=== PATIENT | female | born 1970 | race Caucasian/White ===

== ENCOUNTER 2020-08-14 14:17 | Outpatient (REF) | payer OTHER, SELFPAY ==
--- NOTE | 2020-08-14 14:24 | MM_ITS ---
EXAMINATION: MM SCREENING DIGITAL BREAST TOMOSYNTHESIS, BILATERAL CLINICAL INFORMATION: Screening. Asymptomatic. The lifetime risk of breast cancer based on the Tyrer-Cuzick Model is 5%. COMPARISON: Mammography: 08/09/2019, 04/19/2018, 03/02/2017 TECHNIQUE: Digital breast tomosynthesis is performed in both the craniocaudal and mediolateral oblique views along with computer-aided detection (CAD). Synthesized 2D images are generated from the tomosynthesis. Additional bilateral MLO views are provided. FINDINGS: There are scattered areas of fibroglandular density (ACR BI-RADS breast composition Category b). There are no significant masses, abnormal calcifications, or other abnormalities. There are similar appearing punctate calcifications in the bilateral upper outer quadrants. Left-sided pacemaker generator overlies and partly obscures the axilla on MLO view. MM/MM tomosynthesis screening BI IMPRESSION: No significant changes from prior studies. ASSESSMENT: BI-RADS 2: Benign RECOMMENDATION: Routine annual mammography screening. This patient's information was entered into a reminder system with a target due date for their next mammogram.
== END 2020-08-14 14:18 | disposition home or self-care (01) ==
LOC: HO.MAMMO 14:17
PROVIDERS: PCP Internal Medicine; Visit Provider Internal Medicine
DX: Z12.31 Encounter for screening mammogram for malignant neoplasm of breast (principal)
CPT/HCPCS: 77063; 77067

== ENCOUNTER 2020-10-28 16:23 | Outpatient (REF) | payer OTHER, SELFPAY | END 2020-10-28 16:24 | disposition home or self-care (01) | LOC: HO.LAB 16:23 | PROVIDERS: Visit Provider Nurse Practitioner Family | DX: Z20.822 Contact with and (suspected) exposure to COVID-19 (principal); R50.9 Fever, unspecified | CPT/HCPCS: U0003; U0005 ==

== ENCOUNTER 2020-11-10 11:02 | Outpatient (REF) | payer OTHER, SELFPAY ==
[2020-11-10 12:17] LABS: MANUAL DIFF FLAG NO
[2020-11-10 12:24] LABS: Basophils Percent Auto 0.4 % (0-2); Eosinophils Absolute Auto 0.1 X10*3/uL (0.0-0.4); Eosinophils Percent Auto 2.3 % (0-4); Hematocrit 37.5 % (37-47); Hemoglobin 12.2 g/dl (12.0-16.0); Imm Gran Abs Auto 0.01 X10*3/uL (0.00-0.03); Imm Gran Pct Auto 0.2 % (0.0-0.4); Lymphocytes Absolute Auto 1.2 X10*3/uL (1.2-4.9); Mean Corpuscular HGB Conc 32.5 g/dl (31.0-35.0); Mean Corpuscular Volume 92.4 fL (80-98); Mean Platelet Volume 9.7 fL (9.4-12.3); Monocytes Absolute Auto 0.5 X10*3/uL (0.1-1.2); Monocytes Percent Auto 10.4 % (2-11); Neutrophils Absolute Auto 3.3 X10*3/uL (2.0-8.3); Neutrophils Percent Auto 63.7 % (45-73); Platelet Count 289 X10*3/uL (160-400); Red Blood Count 4.06 X10*6/uL (4.20-5.50); Red Cell Distribution Width 13.2 % (11.0-16.0); White Blood Count 5.2 X10*3/uL (4.8-10.8)
[2020-11-10 12:48] LABS: Anion Gap 13 (12-20); Blood Urea Nitrogen 14 mg/dL (9-16); Calcium 8.4 mg/dL (8.4-10.2); Carbon Dioxide 25 mmol/L (22-29); Chloride 103 mmol/L (96-108); Estimated Glomerular Filt Rate > 60; Glucose Random 89 mg/dL (60-115); Potassium 3.9 mmol/L (3.3-5.1); Sodium 137 mmol/L (135-145)
[2020-11-11 11:57] LABS: Lyme Abs Screen <0.90 index
[2020-11-14 13:36] LABS: HSV 1 IgM IFA Negative (Negative); HSV 2 IgM IFA Negative (Negative)
== END 2020-11-10 11:03 | disposition home or self-care (01) ==
LOC: HO.LAB 11:02
PROVIDERS: PCP Internal Medicine; Visit Provider Internal Medicine
DX: R51.9 Headache, unspecified (principal); R11.2 Nausea with vomiting, unspecified
CPT/HCPCS: 36415; 80048; 85025; 86617; 86618; 86695; 86696

== ENCOUNTER 2021-01-04 12:26 | Outpatient (REF) | payer OTHER, SELFPAY | END 2021-01-04 12:27 | disposition home or self-care (01) | LOC: HO.LAB 12:26 | PROVIDERS: PCP Internal Medicine; Visit Provider Internal Medicine | DX: Z20.822 Contact with and (suspected) exposure to COVID-19 (principal) | CPT/HCPCS: U0003; U0005 ==

== ENCOUNTER 2021-05-21 14:18 | Outpatient (REF) | payer OTHER, SELFPAY ==
[2021-05-21 16:01] LABS: Amphetamine Screen Urine Not Detected (Not Detect); Barbiturates, Urine Not Detected (Not Detect); Benzodiazepines Screen Urine Not Detected (Not Detect); Cannabinoid Screen Urine Not Detected (Not Detect); Cocaine Screen Urine Not Detected (Not Detect); Fentanyl, urine Not Detected (Not Detect); Opiate Screen Urine Not Detected (Not Detect); Phencyclidine Screen Urine Not Detected (Not Detect)
== END 2021-05-21 14:19 | disposition home or self-care (01) ==
LOC: HO.LAB 14:18
PROVIDERS: PCP Internal Medicine; Visit Provider Internal Medicine
DX: F11.10 Opioid abuse, uncomplicated (principal)
CPT/HCPCS: 80307

== ENCOUNTER 2021-06-03 11:09 | Outpatient (REF) | payer OTHER, SELFPAY ==
[2021-06-03 11:31] LABS: MANUAL DIFF FLAG NO
[2021-06-03 11:51] LABS: Basophils Percent Auto 0.5 % (0-2); Eosinophils Absolute Auto 0.2 X10*3/uL (0.0-0.4); Hematocrit 42.5 % (37.0-47.0); Hemoglobin 14.2 g/dl (12.0-16.0); Imm Gran Abs Auto 0.01 X10*3/uL (0.00-0.03); Imm Gran Pct Auto 0.2 % (0.0-0.4); Lymphocytes Absolute Auto 1.6 X10*3/uL (1.2-4.9); Lymphocytes Percent Auto 29.5 % (20-40); Mean Corpuscular HGB Conc 33.4 g/dl (31.0-35.0); Mean Corpuscular Hemoglobin 30.1 pg (27.0-33.0); Mean Corpuscular Volume 90.2 fL (80.0-98.0); Mean Platelet Volume 10.3 fL (9.4-12.3); Monocytes Absolute Auto 0.5 X10*3/uL (0.1-1.2); Neutrophils Absolute Auto 3.16 x10*3/uL (2.0-8.3); Neutrophils Percent Auto 56.8 % (45-73); Platelet Count 170 X10*3/uL (160-400); Red Blood Count 4.71 X10*6/uL (4.20-5.50); Red Cell Distribution Width 11.6 % (11.0-16.0); White Blood Count 5.6 X10*3/uL (4.8-10.8)
[2021-06-03 12:30] LABS: Alanine Aminotransferase 11 U/L (0-31); Albumin Level 4.1 g/dL (3.5-5.0); Alkaline Phosphatase 54 U/L (39-117); Anion Gap 11 (12-20); Aspartate Amino Transferase 13 U/L (5-31); Bilirubin Total < 0.2 mg/dL (0.0-1.0); Blood Urea Nitrogen 11 mg/dL (9-16); C Reactive Protein 0.33 mg/dL (< or = 0.50); Calcium 9.2 mg/dL (8.4-10.2); Carbon Dioxide 28 mmol/L (22-29); Chloride 106 mmol/L (96-108); Estimated Glomerular Filt Rate > 60; Glucose Random 88 mg/dL (60-115); Potassium 4.7 mmol/L (3.3-5.1); Sodium 140 mmol/L (135-145)
[2021-06-03 12:31] LABS: Erythrocyte Sedimentation Rate 10 MM/HR (0-20)
[2021-06-03 12:52] LABS: Free T4 (Free Thyroxine) 1.41 ng/dL (0.71-1.85); Thyroid Stimulating Hormone 0.16 uIU/mL (0.32-4.0)
[2021-06-04 12:16] LABS: Complement C3 97 mg/dL (83-193)
[2021-06-08 16:51] LABS: Anti DNA DS Antibody 2 IU/mL
== END 2021-06-03 11:10 | disposition home or self-care (01) ==
LOC: HO.LAB 11:09
PROVIDERS: PCP Internal Medicine; Referring Provider Internal Medicine Rheumatology; Visit Provider Internal Medicine
DX: M32.8 Other forms of systemic lupus erythematosus (principal); E03.9 Hypothyroidism, unspecified; Z79.52 Long term (current) use of systemic steroids; Z79.82 Long term (current) use of aspirin; Z79.02 Long term (current) use of antithrombotics/antiplatelets; Z79.899 Other long term (current) drug therapy
CPT/HCPCS: 36415; 80053; 82550; 84439; 84443; 85025; 85652; 86140; 86160; 86225

== ENCOUNTER 2021-06-08 11:22 | Outpatient (REF) | payer OTHER, SELFPAY ==
[2021-06-08 14:15] LABS: Amphetamine Screen Urine Not Detected (Not Detect); Barbiturates, Urine Not Detected (Not Detect); Benzodiazepines Screen Urine Not Detected (Not Detect); Cannabinoid Screen Urine Not Detected (Not Detect); Cocaine Screen Urine Not Detected (Not Detect); Fentanyl, urine Not Detected (Not Detect); Opiate Screen Urine Not Detected (Not Detect); Phencyclidine Screen Urine Not Detected (Not Detect)
== END 2021-06-08 11:23 | disposition home or self-care (01) ==
LOC: HO.LAB 11:22
PROVIDERS: PCP Internal Medicine; Visit Provider Internal Medicine
DX: F11.90 Opioid use, unspecified, uncomplicated (principal)
CPT/HCPCS: 80307

== ENCOUNTER 2021-06-22 13:13 | Outpatient (REF) | payer OTHER, SELFPAY | END 2021-06-22 13:14 | disposition home or self-care (01) | LOC: HO.LAB 13:13 | PROVIDERS: PCP Internal Medicine; Visit Provider Internal Medicine | DX: Z20.822 Contact with and (suspected) exposure to COVID-19 (principal) | CPT/HCPCS: C9803; U0003; U0005 ==

== ENCOUNTER 2021-09-27 08:43 | Outpatient (REF) | payer OTHER, SELFPAY ==
[2021-09-27 10:49] LABS: Alanine Aminotransferase 14 U/L (0-31); Albumin Level 4.1 g/dL (3.5-5.0); Alkaline Phosphatase 53 U/L (39-117); Anion Gap 12 (12-20); Aspartate Amino Transferase 13 U/L (5-31); Bilirubin Total 0.4 mg/dL (0.0-1.0); Blood Urea Nitrogen 11 mg/dL (9-16); Calcium 9.4 mg/dL (8.4-10.2); Carbon Dioxide 27 mmol/L (22-29); Chloride 106 mmol/L (96-108); Cholesterol 149 mg/dL; Estimated Glomerular Filt Rate > 60; Glucose Random 89 mg/dL (60-115); HDL Cholesterol 35 mg/dL; LDL Cholesterol Calculated 94 mg/dl; Potassium 3.9 mmol/L (3.3-5.1); Sodium 141 mmol/L (135-145); Triglycerides 103 mg/dL
[2021-09-27 11:00] LABS: Free T4 (Free Thyroxine) 1.44 ng/dL (0.71-1.85); Thyroid Stimulating Hormone 0.03 uIU/mL (0.32-4.0)
== END 2021-09-27 08:44 | disposition home or self-care (01) ==
LOC: HO.LAB 08:43
PROVIDERS: PCP Internal Medicine; Visit Provider Internal Medicine
DX: E03.9 Hypothyroidism, unspecified (principal); E78.00 Pure hypercholesterolemia, unspecified
CPT/HCPCS: 36415; 80053; 80061; 84439; 84443

== ENCOUNTER 2022-01-12 09:02 | Outpatient (REF) | payer OTHER, SELFPAY ==
[2022-01-12 10:26] LABS: Free T4 (Free Thyroxine) 1.82 ng/dL (0.71-1.85); Thyroid Stimulating Hormone 0.38 uIU/mL (0.32-4.0)
== END 2022-01-12 09:03 | disposition home or self-care (01) ==
LOC: HO.LAB 09:02
PROVIDERS: PCP Internal Medicine; Visit Provider Internal Medicine
DX: E03.9 Hypothyroidism, unspecified (principal)
CPT/HCPCS: 36415; 84439; 84443

== ENCOUNTER 2022-04-06 13:21 | Outpatient (REF) | payer OTHER, SELFPAY ==
--- NOTE | ~2022-04-06 | XR_ITS ---
EXAMINATION: BILATERAL KNEE SERIES CLINICAL INFORMATION: Chronic pain both knees COMPARISON: None TECHNIQUE: 4 views of each knee FINDINGS: Right knee: The bones joints and soft tissues are normal without effusion. Left knee: The bones joints and soft tissues are normal without effusion. XR/XR knee RT 3V IMPRESSION: Normal x-ray series of both knees
--- NOTE | ~2022-04-06 | XR_ITS ---
EXAMINATION: BILATERAL KNEE SERIES CLINICAL INFORMATION: Chronic pain both knees COMPARISON: None TECHNIQUE: 4 views of each knee FINDINGS: Right knee: The bones joints and soft tissues are normal without effusion. Left knee: The bones joints and soft tissues are normal without effusion. XR/XR knee LT 3V IMPRESSION: Normal x-ray series of both knees
== END 2022-04-06 13:22 | disposition home or self-care (01) ==
LOC: HO.XRAY 13:21
PROVIDERS: PCP Internal Medicine; Visit Provider Internal Medicine Rheumatology
DX: M25.561 Pain in right knee (principal); M25.562 Pain in left knee; M32.8 Other forms of systemic lupus erythematosus; M54.41 Lumbago with sciatica, right side; G89.29 Other chronic pain
CPT/HCPCS: 73562

== ENCOUNTER 2022-07-26 12:47 | Outpatient (REF) | payer OTHER, SELFPAY ==
--- NOTE | ~2022-07-26 | MM_ITS ---
EXAMINATION: MM SCREENING DIGITAL BREAST TOMOSYNTHESIS, BILATERAL CLINICAL INFORMATION: Screening. Asymptomatic. The lifetime risk of breast cancer based on the Tyrer-Cuzick Model is 10.0%. COMPARISON: Mammography: August 14, 2020 and studies dating back to January 27, 2016 TECHNIQUE: Digital breast tomosynthesis is performed in both the craniocaudal and mediolateral oblique views along with computer-aided detection (CAD). Synthesized 2D images are generated from the tomosynthesis. FINDINGS: The breasts are heterogeneously dense, which may obscure small masses (ACR BI-RADS breast composition Category c). There are no significant masses, abnormal calcifications, or other abnormalities. MM/MM tomosynthesis screening BI IMPRESSION: No significant changes from prior exam. ASSESSMENT: BI-RADS 1: Negative RECOMMENDATION: Routine annual mammography screening. This patient's information was entered into a reminder system with a target due date for their next mammogram.
== END 2022-07-26 12:48 | disposition home or self-care (01) ==
LOC: HO.MAMMO 12:47
PROVIDERS: PCP Internal Medicine; Visit Provider Obstetrics & Gynecology Female Pelvic Medicine and Reconstructive Surgery
DX: Z12.31 Encounter for screening mammogram for malignant neoplasm of breast (principal)
CPT/HCPCS: 77063; 77067

== ENCOUNTER 2022-12-12 11:09 | Outpatient (REF) | payer OTHER, SELFPAY ==
[2022-12-12 11:22] LABS: MANUAL DIFF FLAG NO
[2022-12-12 12:08] LABS: Basophils Percent Auto 0.6 % (0-2); Eosinophils Absolute Auto 0.2 X10*3/uL (0.0-0.4); Eosinophils Percent Auto 3.2 % (0-4); Hematocrit 42.7 % (37.0-47.0); Hemoglobin 14.3 g/dl (12.0-16.0); Imm Gran Abs Auto 0.01 X10*3/uL (0.00-0.03); Imm Gran Pct Auto 0.2 % (0.0-0.4); Lymphocytes Absolute Auto 1.8 X10*3/uL (1.2-4.9); Lymphocytes Percent Auto 33.2 % (20-40); Mean Corpuscular HGB Conc 33.5 g/dl (31.0-35.0); Mean Corpuscular Volume 89.5 fL (80.0-98.0); Monocytes Absolute Auto 0.6 X10*3/uL (0.1-1.2); Monocytes Percent Auto 10.7 % (2-11); Neutrophils Absolute Auto 2.8 x10*3/uL (2.0-8.3); Neutrophils Percent Auto 52.1 % (45-73); Platelet Count 165 X10*3/uL (160-400); Red Blood Count 4.77 X10*6/uL (4.20-5.50); Red Cell Distribution Width 11.9 % (11.0-16.0); White Blood Count 5.3 X10*3/uL (4.8-10.8)
[2022-12-12 12:38] LABS: Alanine Aminotransferase 13 U/L (0-31); Albumin Level 4.1 g/dL (3.5-5.0); Alkaline Phosphatase 57 U/L (39-117); Anion Gap 11 (12-20); Aspartate Amino Transferase 14 U/L (5-31); Bilirubin Total 0.5 mg/dL (0.0-1.0); Blood Urea Nitrogen 12 mg/dL (9-16); Calcium 9.2 mg/dL (8.4-10.2); Carbon Dioxide 28 mmol/L (22-29); Chloride 107 mmol/L (96-108); Cholesterol 120 mg/dL; Estimated Glomerular Filt Rate > 60; Glucose Random 85 mg/dL (60-115); HDL Cholesterol 37 mg/dL; LDL Cholesterol Calculated 69 mg/dl; Potassium 4.7 mmol/L (3.3-5.1); Sodium 141 mmol/L (135-145); Total Protein 6.8 g/dL (6.5-8.0); Triglycerides 74 mg/dL
[2022-12-12 12:59] LABS: Erythrocyte Sedimentation Rate 7 MM/HR (0-20)
[2022-12-12 13:09] LABS: Folate 15.9 ng/mL (> or = 4.0); Free T4 (Free Thyroxine) 1.69 ng/dL (0.71-1.85); Thyroid Stimulating Hormone < 0.01 uIU/mL (0.32-4.0); Vitamin B12 235 pg/mL (200-900); Vitamin D 25-OH Total 28.8 ng/mL (>30)
== END 2022-12-12 11:10 | disposition home or self-care (01) ==
LOC: HO.LAB 11:09
PROVIDERS: PCP Internal Medicine; Visit Provider Internal Medicine
DX: E03.9 Hypothyroidism, unspecified (principal); M32.8 Other forms of systemic lupus erythematosus; K21.9 Gastro-esophageal reflux disease without esophagitis; E78.00 Pure hypercholesterolemia, unspecified
CPT/HCPCS: 36415; 80053; 80061; 82306; 82607; 82746; 84439; 84443; 85025; 85652

== ENCOUNTER 2023-02-10 15:30 | Outpatient (REF) | payer OTHER, SELFPAY ==
[2023-02-10 18:42] LABS: Free T4 (Free Thyroxine) 1.24 ng/dL (0.71-1.85); Thyroid Stimulating Hormone 0.02 uIU/mL (0.32-4.0)
== END 2023-02-10 15:31 | disposition home or self-care (01) ==
LOC: HO.LAB 15:30
PROVIDERS: PCP Internal Medicine; Visit Provider Internal Medicine
DX: E03.9 Hypothyroidism, unspecified (principal)
CPT/HCPCS: 36415; 84439; 84443

== ENCOUNTER 2023-02-13 10:39 | Outpatient (AMB) | payer OTHER, SELFPAY ==
[2023-02-13 10:51] VITALS: BP 90/58; PULSE 78; O2SAT 97; BMI 19.5
--- NOTE | 2023-02-13 10:51 | MHC.PC.OV ---
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 Allergies No Known Allergies [No Known Allergies*] Allergy (Verified 02/13/23 10:52) Medication List - Last Reconciled 02/13/23 by Aura Willis MD acetaminophen ER (Tylenol Arthritis Pain) 650 mg PO Q8H aspirin 81 mg PO DAILY 90 days atorvastatin 10 mg PO QPM 90 days beclomethasone dipropionate 80 mcg/actuation (Qvar RediHaler) 1 inh inhalation BID famotidine 20 mg PO BID hydroxychloroquine (Plaquenil) 200 mg PO DAILY levothyroxine 200 mcg PO DAILY qvuiaonu-rmmfgtvcl-XK 3.5-10,000-1 mg/mL-unit/mL-% 4 drps otic (ear) left Q8H 10 days nicotine 1 patch transdermal DAILY nicotine 1 patch transdermal DAILY nicotine (polacrilex) 2 mg buccal Q1H pantoprazole 40 mg PO DAILY 90 days prednisone 5 mg PO DAILY rivaroxaban (Xarelto) 20 mg PO DAILY 90 days Tobacco use date assessed: 02/13/23 HPI Hypothyroid, GERD HPI Details 52-year-old female smoker with COPD SLE hypertension obstructive sleep apnea GERD history of pulmonary embolism lumbar disc disease hypothyroidism, hypercholesterolemia generalized anxiety disorder coming in for follow-up. Last seen in December 2022. Patient had blood work done is here for follow-up [facility] Medical History (Updated 02/13/23 @ 11:39 by Aura Willis MD) Annual physical exam Carpal tunnel syndrome COPD (chronic obstructive pulmonary disease) Fever GERD (gastroesophageal reflux disease) Headache Hypercholesterolemia Hypertension Hypothyroid Lumbar disc disease Lumbar disc herniation Nausea and vomiting Obstructive sleep apnea Pulmonary embolism Recurrent deep vein thrombosis (DVT) Sinusitis SLE (systemic lupus erythematosus) Tobacco abuse Ventricular arrhythmia Viral syndrome Vitamin D deficiency Surgical History H/O bilateral oophorectomy History of cholecystectomy History of surgery Family History (Updated 12/13/22 @ 13:03 by Aura Willis MD) Father No problems noted. Mother Myocardial infarction CVD (cardiovascular disease) FH: liver cancer Paternal Aunt Breast cancer Social History (Updated 12/13/22 @ 13:04 by Aura Willis MD) Housing: House Alcohol intake: never Patient Tobacco Use Status: Current everyday Tobacco user Tobacco use type: Cigarette Cigarettes Per Day: 15 e-Cigarette/Vaping Use: Never Used Second Hand Smoke Exposure: No service: No Current occupational status: disabled Cognitive needs: No Hearing needs: No Vision needs: Yes (glasses) Questionnaire Thrive Questionnaire Date Thrive assessed: 01/25/23 AUDIT C Alcohol Use Questionnaire (AUDIT-C) 1. How often do you have a drink containing alcohol?: Never 2. How many drinks containing alcohol do you have on a typical day when you are drinking?: 1 or 2 3. How often do you have six or more drinks on one occasion?: Never Total Score: 0 ANH-7 AMB Questionnaire ANH-7 Date ANH - 7 assessed: 12/13/22 Source: Developed by Drs. Dick Arrington, Chery Jerez, Joselito Rosario and colleagues, with an educational christa from [email or web address]. Physical exam (Primary Care) Vital Signs: Last Vital Signs Pulse 78 02/13/23 10:51 BP 90/58 L 02/13/23 10:51 Pulse Ox 97 02/13/23 10:51 Oxygen Delivery Method Room Air 02/13/23 10:51 BMI result Body Mass Index 19.5 Tobacco/Smoking Status: Tobacco use Status Tobacco use date assessed 02/13/23 02/13/23 10:56 Patient Tobacco Use Status Current everyday Tobacco 02/13/23 10:51 Tobacco use type Cigarette 02/13/23 10:51 e-Cigarette/Vaping Use Never Used 02/13/23 10:51 Thrive Assessment: Date of Thrive Assessment Date Thrive assessed 01/25/23 02/13/23 10:51 Const General: alert; No acute distress Eyes Conjunctivae: conjunctivae normal Resp Auscultation: clear to auscultation bilaterally Cardio Rate: regular rate Rhythm: regular rhythm GI Inspection: Yes normal to inspection Extrem General: Yes normal to inspection and No edema Assessment and Plan Assessment & Plan (1) Tobacco abuse: Comment: stopped last week 01/2023 Code(s): Z72.0 - Tobacco use Plan: Patient is strongly advised to stop smoking! (2) COPD (chronic obstructive pulmonary disease): Code(s): J44.9 - Chronic obstructive pulmonary disease, unspecified Qualifiers: COPD type: emphysema Emphysema type: panlobular Qualified Code(s): J43.1 - Panlobular emphysema Plan: Stop smoking! Continue with inhalers as knee (3) SLE (systemic lupus erythematosus): Comment: Dr. Hernandez Code(s): M32.9 - Systemic lupus erythematosus, unspecified Qualifiers: Systemic lupus erythematosus type: other Systemic lupus erythematosus organ involvement: unspecified Qualified Code(s): M32.8 - Other forms of systemic lupus erythematosus Plan: Continue to follow-up with Rheumatology on Plaquenil (4) GERD (gastroesophageal reflux disease): Code(s): K21.9 - Gastro-esophageal reflux disease without esophagitis Qualifiers: Esophagitis presence: without esophagitis Qualified Code(s): K21.9 - Gastro-esophageal reflux disease without esophagitis Plan: Avoid the foods that causes that usually spicy foods, tomato products, juices, coffee, soda and foods that your sensitive to. After eating do not lie down, allow 3-4 hours before in lie down. And keep the head of bed above 30 degrees to avoid the acid from going up. On pantoprazole (5) Hypothyroid: Code(s): E03.9 - Hypothyroidism, unspecified Plan: Thyroid medication adjustment (6) Hypercholesterolemia: Code(s): E78.00 - Pure hypercholesterolemia, unspecified Plan: Avoid fried foods, chicken skin, eggs, butter margarine, pastries and meat. 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 Medications: Changed From levothyroxine 200 mcg PO DAILY 90 tabs 1RF E03.9 - Hypothyroidism, unspecified To levothyroxine 175 mcg PO DAILY 30 days 30 tabs 3RF E03.9 - Hypothyroidism, unspecified Refilled nicotine (polacrilex) 2 mg buccal Q1H 110 ea 0RF Z72.0 - Tobacco use Coding Level of Care Code Est Pt Level 4 (48412) Diagnoses Tobacco abuse Z72.0 COPD (chronic obstructive pulmonary disease) J43.1 COPD type: emphysema Emphysema type: panlobular SLE (systemic lupus erythematosus) M32.8 Systemic lupus erythematosus type: other Systemic lupus erythematosus organ involvement: unspecified GERD (gastroesophageal reflux disease) K21.9 Esophagitis presence: without esophagitis Hypothyroid E03.9 Hypercholesterolemia E78.00 Current chronic use of systemic steroids Z79.52
== END 2023-02-13 11:49 | disposition home or self-care (01) ==
PROVIDERS: PCP Internal Medicine; Visit Provider Internal Medicine
DX: J43.1 Panlobular emphysema (principal); Z79.52 Long term (current) use of systemic steroids; E03.9 Hypothyroidism, unspecified; K21.9 Gastro-esophageal reflux disease without esophagitis; M32.8 Other forms of systemic lupus erythematosus; Z72.0 Tobacco use; E78.00 Pure hypercholesterolemia, unspecified
CPT/HCPCS: 99214

== ENCOUNTER 2023-02-17 14:13 | Outpatient (REF) | payer OTHER, SELFPAY ==
--- NOTE | ~2023-02-17 | MM_ITS ---
EXAMINATION: BONE DENSITOMETRY CLINICAL INDICATION: Age-related osteoporosis without current pathological fracture. COMPARISON: Baseline BD dated 10/03/2006. TECHNIQUE: Using a Zen99 DXA System (software version: 13.1) manufactured by [email or web address], dual-energy x-ray absorptiometry was performed of the lumbar spine and left hip. The images are of good technical quality. Summary results are attached. FINDINGS: AP SPINE L1-L4: Current: BMD 0.880 g/cm2, Z-score -1.8, T-score -2.5, osteoporosis, 27.3% decrease from baseline (<5% change is not significant). Baseline: BMD 1.210 g/cm2. LEFT FEMUR, NECK: Current: BMD 0.793 g/cm2, Z-score -0.8, T-score -1.8, osteopenia. Baseline: BMD 0.982 g/cm2. LEFT FEMUR, TOTAL: Current: BMD 0.726 g/cm2, Z-score -1.6, T-score -2.2, osteopenia, 21.9% decrease from baseline (<5% change is not significant). Baseline: BMD 0.930 g/cm2. IDENTIFIED RISK FACTORS: Rheumatoid arthritis, osteoporosis, tobacco use (current smoker), secondary osteoporosis, glucocorticoids (chronic), menopause. HISTORY OF FRACTURE: None listed. MEDICATIONS: Vitamin D. MM/XR DEXA axial skeleton IMPRESSION: 1. DIAGNOSIS: Osteoporosis based on the lowest T-score value of -2.5 in the lumbar spine applying World Health Organization criteria. 2. 10-YEAR FRACTURE RISK PREDICTION, FRAX: According to the guidelines, FRAX calculation should only be performed on patients in the osteopenia bone density category. Therefore, FRAX was not performed on this patient. 3. Treatment Recommendations: NOF guidelines recommend consideration for treatment in postmenopausal women and men age 50 and older presenting with the following: -A hip or vertebral (clinical or morphometric) fracture. -T-score less than or equal to -2.5 at the femoral neck or spine after appropriate evaluation to exclude secondary causes. -Low bone mass at the hip or spine and a 10-year fracture probability by FRAX of greater than or equal to 3% for hip fracture or greater than or equal to 20% for major osteoporotic fracture based on the [place] adapted WHO algorithm. 4. Other Recommendations: All treatment decisions require clinical judgment and consideration of individual patient factors, including patient preferences, comorbidities, previous drug use, risk factors not captured in the FRAX model (e.g. frailty, falls, vitamin D deficiency, increased bone turnover, interval significant decline in bone density) and possible under or overestimation of fracture risk by FRAX. Additional medical evaluation for secondary cause of low bone mineral density may be appropriate. FUTURE SCAN RECOMMENDATION: People with diagnosed cases of osteoporosis or at high risk for fracture should have regular bone mineral density tests. For patients eligible for Medicare, routine testing is allowed once every 2 years. The testing frequency can be increased to one year for patients who have rapidly progressing disease, those who are receiving or discontinuing medical therapy to restore bone mass, or have additional risk factors.
== END 2023-02-17 14:14 | disposition home or self-care (01) ==
LOC: HO.MAMMO 14:13
PROVIDERS: Visit Provider Internal Medicine
DX: M81.0 Age-related osteoporosis without current pathological fracture (principal); Z79.52 Long term (current) use of systemic steroids
CPT/HCPCS: 77080

== ENCOUNTER 2023-03-20 11:15 | Outpatient (REF) | payer OTHER, SELFPAY ==
--- NOTE | ~2023-03-20 | XR_ITS ---
EXAMINATION: XR CERVICAL SPINE CLINICAL INFORMATION: Patient with lupus erythematosus and neck pain COMPARISON: None available. TECHNIQUE: 6 views of the cervical spine, inclusive of flexion and extension views, were obtained. FINDINGS: There is straightening of cervical lordosis with mild narrowing of C5-C6 intervertebral disc space and mild narrowing of neuroforamina bilaterally. Soft tissues unremarkable. No evidence of fractures or subluxations. XR/XR cervical spine 5V IMPRESSION: Mild degenerative changes at the level of C5-C6.
--- NOTE | ~2023-03-20 | XR_ITS ---
EXAMINATION: XR KNEE, RIGHT CLINICAL INFORMATION: Right knee pain in a patient with lupus erythematosus COMPARISON: None available. TECHNIQUE: Four views of the right knee. FINDINGS: No fracture or joint effusion. Alignment is anatomic. Joint spaces are maintained. No abnormal soft tissue calcification. XR/XR knee RT 4V IMPRESSION: Normal right knee.
[2023-03-20 12:46] LABS: Free T4 (Free Thyroxine) 1.32 ng/dL (0.71-1.85); Thyroid Stimulating Hormone 0.03 uIU/mL (0.32-4.0)
== END 2023-03-20 11:16 | disposition home or self-care (01) ==
LOC: HO.XRAY 11:15
PROVIDERS: Absent Provider Internal Medicine; PCP Internal Medicine; Visit Provider Internal Medicine Rheumatology
DX: M32.8 Other forms of systemic lupus erythematosus (principal); M15.9 Polyosteoarthritis, unspecified; Z79.52 Long term (current) use of systemic steroids
CPT/HCPCS: 36415; 72050; 73564; 84439; 84443

== ENCOUNTER 2023-05-05 11:16 | Outpatient (REF) | payer MEDICAID, SELFPAY | END 2023-05-05 11:17 | disposition home or self-care (01) | LOC: HO.LAB 11:16 | PROVIDERS: PCP Internal Medicine; Visit Provider Internal Medicine | DX: E03.9 Hypothyroidism, unspecified (principal) | CPT/HCPCS: 36415; 83036; 84443 ==

== ENCOUNTER 2023-05-30 09:44 | Outpatient (AMB) | payer OTHER, SELFPAY ==
--- NOTE | 2023-05-30 10:14 | A.OFFPC_ITS ---
Vital Signs 05/30/23 10:15 Height 5 ft 10 in Weight 134 lb BMI 19.2 BP 112/68 Blood Pressure Location Lt brachial Position Sitting Pulse 70 Pulse Source Pulse Oximeter Pulse Oximetry (%) 98 Oxygen Delivery Method Room Air Intake Visit Reasons: SLE, COPD Allergies No Known Allergies [No Known Allergies*] Allergy (Verified 05/30/23 10:21) Tobacco use date assessed: 02/13/23 Dental Screening Dental Screen Date: 05/30/23 Did you have a dental visit in the last 12 months?: Yes Did you have a dental problem in the last 6 months where you did not have access to dental care?: No Was dental information given to patient?: Patient has dentist HPI SLE, COPD HPI Details 52-year-old female smoker with SLE, COPD GERD hypothyroidism hypercholesterolemia coming in for follow-up. Last seen in January 2023 patient's mammogram is due, declined colonoscopy . Patient follows up with Rheumatology in [facility] had blood work done with the blood count all within normal limits CK is normal C-reactive protein is normal sodium potassium is normal blood sugar here was 104 creatinine is normal calcium is normal liver numbers are normal vitamin-D is normal sed rate is 5 hemoglobin A1c is normal 4.9. January 2023 bone density shows osteoporosis x-ray done of the knee is normal cervical spine x-ray shows mild degenerative changes C5-C6.2 weeks L ear pain [facility] Medical History (Updated 05/30/23 @ 10:51 by Aura Willis MD) Impacted cerumen of left ear Annual physical exam Lumbar disc disease Nausea and vomiting Viral syndrome Headache Sinusitis Fever Pulmonary embolism Lumbar disc herniation Ventricular arrhythmia Tobacco abuse Carpal tunnel syndrome GERD (gastroesophageal reflux disease) Vitamin D deficiency Recurrent deep vein thrombosis (DVT) Obstructive sleep apnea COPD (chronic obstructive pulmonary disease) Hypertension Hypothyroid Hypercholesterolemia SLE (systemic lupus erythematosus) Surgical History History of surgery H/O bilateral oophorectomy History of cholecystectomy Family History (Updated 12/13/22 @ 13:03 by Aura Willis MD) Father No problems noted. Mother Myocardial infarction CVD (cardiovascular disease) FH: liver cancer Paternal Aunt Breast cancer Social History (Updated 12/13/22 @ 13:04 by Aura Willis MD) Housing: House Alcohol intake: never Patient Tobacco Use Status: Current everyday Tobacco user Tobacco use type: Cigarette Cigarettes Per Day: 15 e-Cigarette/Vaping Use: Never Used Second Hand Smoke Exposure: No service: No Current occupational status: disabled Cognitive needs: No Hearing needs: No Vision needs: Yes (glasses) Questionnaire PHQ-9 Over the last 2 weeks, how often have you been bothered by any of the following problems? 1. Little interest or pleasure in doing things: several days 2. Feeling down, depressed, or hopeless: several days 3. Trouble falling or staying asleep, or sleeping too much: not at all 4. Feeling tired or having little energy: not at all 5. Poor appetite or overeating: not at all 6. Feeling bad about yourself - or that you are a failure or have let yourself or your family down: not at all 7. Trouble concentrating on things, such as reading the newspaper or watching television: not at all 8. Moving or speaking so slowly that other people could have noticed. Or the opposite - being so fidgety or restless that you have been moving around a lot more than usual: not at all 9. Thoughts that you would be better off or of hurting yourself in some way: not at all Total score: 2 Depression Screening Interpretation: Negative Depression Screening Done: Yes Source: Developed by Drs. Dick Arrington, Chery Jerez, Joselito Rosario and colleagues, with an educational christa from [employer]. Thrive Questionnaire Date Thrive assessed: 01/25/23 AUDIT C Alcohol Use Questionnaire (AUDIT-C) 1. How often do you have a drink containing alcohol?: Never 2. How many drinks containing alcohol do you have on a typical day when you are drinking?: 1 or 2 3. How often do you have six or more drinks on one occasion?: Never Total Score: 0 ANH-7 AMB Questionnaire ANH-7 Date ANH - 7 assessed: 12/13/22 Source: Developed by Drs. Dick Arrington, Chery Jerez, Joselito Rosario and colleagues, with an educational christa from [employer]. Physical exam (Primary Care) Vital Signs: Last Vital Signs Pulse 70 05/30/23 10:15 BP 112/68 05/30/23 10:15 Pulse Ox 98 05/30/23 10:15 Oxygen Delivery Method Room Air 05/30/23 10:15 BMI result Body Mass Index 19.2 Tobacco/Smoking Status: Tobacco use Status Tobacco use date assessed 02/13/23 05/30/23 10:16 Patient Tobacco Use Status Current everyday Tobacco 05/30/23 10:16 Tobacco use type Cigarette 05/30/23 10:16 e-Cigarette/Vaping Use Never Used 05/30/23 10:16 PHQ-9: PHQ-9 Score PHQ-9: Total score 2 05/30/23 10:28 Depression Screening Interpretation: Negative Thrive Assessment: Date of Thrive Assessment Date Thrive assessed 01/25/23 05/30/23 10:16 Const General: alert; No acute distress HENMT Other: Left ear with impacted cerumen Eyes Conjunctivae: conjunctivae normal Resp Auscultation: clear to auscultation bilaterally Cardio Rate: regular rate Rhythm: regular rhythm GI Inspection: Yes normal to inspection Extrem General: Yes normal to inspection and No edema Assessment and Plan Assessment & Plan (1) Tobacco abuse: Comment: stopped last week 01/2023 Code(s): Z72.0 - Tobacco use Plan: Strongly advised to stop smoking (2) Obstructive sleep apnea: Comment: cannot tolerate CPAP Code(s): G47.33 - Obstructive sleep apnea (adult) (pediatric) (3) COPD (chronic obstructive pulmonary disease): Code(s): J44.9 - Chronic obstructive pulmonary disease, unspecified Qualifiers: COPD type: emphysema Emphysema type: panlobular Qualified Code(s): J43.1 - Panlobular emphysema Plan: Stop smoking! Continue with steroid inhaler and rinse mouth after using (4) SLE (systemic lupus erythematosus): Comment: Dr. Hernandez Code(s): M32.9 - Systemic lupus erythematosus, unspecified Qualifiers: Systemic lupus erythematosus type: other Systemic lupus erythematosus organ involvement: unspecified Qualified Code(s): M32.8 - Other forms of systemic lupus erythematosus Plan: Continue to follow-up with Rheumatology on steroid and hydroxychloroquine (5) Hypercholesterolemia: Code(s): E78.00 - Pure hypercholesterolemia, unspecified Plan: Avoid fried foods, chicken skin, eggs, butter margarine, pastries and meat. Be it pork or beef they have a lot of cholesterol on atorvastatin 10 mg once a day (6) Osteoporosis: Comment: 01/2023 Code(s): M81.0 - Age-related osteoporosis without current pathological fracture Plan: Discussed with the patient about the bone density and due to the steroid intake. Discussed about treatment (7) Impacted cerumen of left ear: Code(s): H61.22 - Impacted cerumen, left ear Plan: will need to come back for ear irrigation (8) Otitis externa, left: Code(s): H60.92 - Unspecified otitis externa, left ear Plan: antibiotic ear gtt sent Orders: Orders Thyroid Stimulating Hormone 6 Weeks E03.9 - Hypothyroidism, unspecified Free T4 (Free Thyroxine) 6 Weeks E03.9 - Hypothyroidism, unspecified Medications: New qwwqulih-toylkwpdq-GR 3.5-10,000-1 mg/mL-unit/mL-% 4 drps otic (ear) left Q8H 10 days 10 mL 0RF H61.22 - Impacted cerumen, left ear Changed From levothyroxine 150 mcg PO DAILY 30 days 30 tabs 3RF E03.9 - Hypothyroidism, unspecified To levothyroxine 175 mcg PO DAILY 90 days 90 tabs 3RF E03.9 - Hypothyroidism, unspecified Discontinued nicotine Discontinued Reason: Doctor's Order 1 patch transdermal DAILY 28 ea 0RF Z72.0 - Tobacco use nicotine Discontinued Reason: Doctor's Order 1 patch transdermal DAILY 28 ea 3RF Z72.0 - Tobacco use Coding Level of Care Code Est Pt Level 4 (16951) Diagnoses Tobacco abuse Z72.0 Obstructive sleep apnea G47.33 Panlobular emphysema J43.1 COPD type: emphysema Emphysema type: panlobular Other forms of systemic lupus erythematosus, unspecified organ involvement status M32.8 Systemic lupus erythematosus type: other Systemic lupus erythematosus organ involvement: unspecified Hypercholesterolemia E78.00 Osteoporosis M81.0 Impacted cerumen of left ear H61.22 Otitis externa, left H60.92
[2023-05-30 10:15] VITALS: BP 112/68; PULSE 70; O2SAT 98; BMI 19.2
== END 2023-05-30 10:55 | disposition home or self-care (01) ==
PROVIDERS: PCP Internal Medicine; Visit Provider Internal Medicine
DX: J43.1 Panlobular emphysema (principal); M32.8 Other forms of systemic lupus erythematosus; Z72.0 Tobacco use; G47.33 Obstructive sleep apnea (adult) (pediatric); E78.00 Pure hypercholesterolemia, unspecified; M81.0 Age-related osteoporosis without current pathological fracture; H61.22 Impacted cerumen, left ear; H60.92 Unspecified otitis externa, left ear
CPT/HCPCS: 99214

== ENCOUNTER 2023-06-15 09:49 | Outpatient (AMB) | payer OTHER, SELFPAY ==
[2023-06-15 09:54] VITALS: BP 118/72; PULSE 80; O2SAT 95; BMI 19.4
--- NOTE | 2023-06-15 09:54 | A.OFFPC_ITS ---
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 Accompanied by: Self / Same As Patient Allergies No Known Allergies [No Known Allergies*] Allergy (Verified 06/15/23 09:54) Tobacco use date assessed: 06/15/23 Dental Screening Dental Screen Date: 06/15/23 Did you have a dental visit in the last 12 months?: No Did you have a dental problem in the last 6 months where you did not have access to dental care?: No Was dental information given to patient?: No HPI HPI Comments History of Present Illness Details 52-year-old female past medical history significant for hypertension,SLE, COPD, sleep apnea carpal tunnel syndrome, embolism, hypercholesteremia among others. Patient last seen and of April. Patient presents today for left ear lavage. Patient noted to have impacted cerumen, but states she use iwmh-imz-fuuwoih Debrox drops as recommended by PCP. Tolerated ear lavage procedure well did state had minimal dizziness that quickly resolved. Denied any ear pain. Canal clear, TMs intact. [facility] Medical History (Updated 05/30/23 @ 10:51 by Aura Willis MD) Impacted cerumen of left ear Annual physical exam Lumbar disc disease Nausea and vomiting Viral syndrome Headache Sinusitis Fever Pulmonary embolism Lumbar disc herniation Ventricular arrhythmia Tobacco abuse Carpal tunnel syndrome GERD (gastroesophageal reflux disease) Vitamin D deficiency Recurrent deep vein thrombosis (DVT) Obstructive sleep apnea COPD (chronic obstructive pulmonary disease) Hypertension Hypothyroid Hypercholesterolemia SLE (systemic lupus erythematosus) Surgical History History of surgery H/O bilateral oophorectomy History of cholecystectomy Family History Father No problems noted. Mother Myocardial infarction CVD (cardiovascular disease) FH: liver cancer Paternal Aunt Breast cancer Social History (Updated 12/13/22 @ 13:04 by Aura Willis MD) Housing: House Alcohol intake: never Patient Tobacco Use Status: Current everyday Tobacco user Tobacco use type: Cigarette Cigarettes Per Day: 15 e-Cigarette/Vaping Use: Never Used Second Hand Smoke Exposure: No service: No Current occupational status: disabled Cognitive needs: No Hearing needs: No Vision needs: Yes (glasses) Questionnaire PHQ-9 Over the last 2 weeks, how often have you been bothered by any of the following problems? 1. Little interest or pleasure in doing things: several days 2. Feeling down, depressed, or hopeless: several days 3. Trouble falling or staying asleep, or sleeping too much: not at all 4. Feeling tired or having little energy: not at all 5. Poor appetite or overeating: not at all 6. Feeling bad about yourself - or that you are a failure or have let yourself or your family down: not at all 7. Trouble concentrating on things, such as reading the newspaper or watching television: not at all 8. Moving or speaking so slowly that other people could have noticed. Or the opposite - being so fidgety or restless that you have been moving around a lot more than usual: not at all 9. Thoughts that you would be better off or of hurting yourself in some way: not at all Total score: 2 Depression Screening Interpretation: Negative Depression Screening Done: Yes Source: Developed by Drs. Dick Arrington, Chery Jerez, Joselito Rosario and colleagues, with an educational christa from [employer]. Thrive Questionnaire Date Thrive assessed: 06/15/23 I am a: Patient What is your living situation today?: I have a steady place to live Within the past 12 months, did the food you bought not last and you didn't have the money to get more?: Never true Within the past 12 months, did you worry whether your food would run out before you got money to buy more?: Never true Do you have trouble paying for medicines?: No Do you have trouble getting transportation to medical appointments?: No Do you have trouble paying your heating and electricity bill?: No Do you have trouble taking care of your child, family member or friend?: No Do you have trouble with day-to-day activities such as bathing, preparing meals, shopping, managing finances, etc.?: No Are you currently unemployed and looking for a job?: No Are you interested in more education?: No Please select the resources that you would like help with: None Currently or been in a relationship where the following occur: no concerns reported AUDIT C Alcohol Use Questionnaire (AUDIT-C) 1. How often do you have a drink containing alcohol?: Never 2. How many drinks containing alcohol do you have on a typical day when you are drinking?: 1 or 2 3. How often do you have six or more drinks on one occasion?: Never Total Score: 0 ANH-7 AMB Questionnaire ANH-7 Date ANH - 7 assessed: 06/15/23 Feeling nervous, anxious, or on edge: 0 = Not at all Not being able to stop or control worryin = Not at all Worrying too much about different things: 0 = Not at all Trouble relaxin = Not at all Being so restless that it is hard to sit still: 0 = Not at all Becoming easily annoyed or irritable: 0 = Not at all Feeling afraid as if something awful might happen: 0 = Not at all Total ANH-7 score (0-4 normal; 5-9 mild; 10-14 moderate; 15-21 severe): 0 Source: Developed by Drs. Dick Arrington, Chery Jerez, Joselito Rosario and colleagues, with an educational christa from [employer]. Review of Systems ENT Details: Impacted cerumen. Denies otalgia Physical exam (Primary Care) Vital Signs: Last Vital Signs Pulse 80 06/15/23 09:54 BP 118/72 06/15/23 09:54 Pulse Ox 95 06/15/23 09:54 Oxygen Delivery Method Room Air 06/15/23 09:54 BMI result Body Mass Index 19.4 Tobacco/Smoking Status: Tobacco use Status Tobacco use date assessed 06/15/23 06/15/23 09:56 Patient Tobacco Use Status Current everyday Tobacco 06/15/23 09:56 Tobacco use type Cigarette 06/15/23 09:56 e-Cigarette/Vaping Use Never Used 06/15/23 09:56 PHQ-9: PHQ-9 Score PHQ-9: Total score 2 06/15/23 09:56 Depression Screening Interpretation: Negative Thrive Assessment: Date of Thrive Assessment Date Thrive assessed 06/15/23 06/15/23 09:56 Currently or been in a relationship where the following occur: no concerns reported HENMT Ears: TM's normal bilaterally Office Procedures Cerumen Removal From which ear canal was the cerumen removed: left Removal: irrigation Notes: patient tolerated procedure well, no complications (states minima; dizz iness which quickly resolved. ) and ear canal clear [id number] Irrigation/Lavage Assessment and Plan Assessment & Plan (1) Impacted cerumen of left ear: Code(s): H61.22 - Impacted cerumen, left ear Plan: Ear lavage completed, canals clear, TMs pearly. Did report minimal dizziness following ear lavage which quickly resolved. Denies any ear pain. Patient advised to refrain from using Q-tips. Plan Scheduled follow-up with PCP. Coding Level of Care Code Est Pt Level 3 (28625) Diagnoses Impacted cerumen of left ear H61.22 CPT Codes Office Procedure - CPT: 22677-Qze Irrigation/Lavage ([id number])
== END 2023-06-15 11:06 | disposition home or self-care (01) ==
PROVIDERS: PCP Internal Medicine; Visit Provider Nurse Practitioner Family
DX: H61.22 Impacted cerumen, left ear (principal); I10 Essential (primary) hypertension
CPT/HCPCS: 69209; 99213

== ENCOUNTER 2023-09-04 08:51 | Outpatient (REF) | payer OTHER, SELFPAY ==
[2023-09-04 11:12] LABS: Free T4 (Free Thyroxine) 1.22 ng/dL (0.71-1.85); Thyroid Stimulating Hormone 0.61 uIU/mL (0.32-4.0)
== END 2023-09-04 08:52 | disposition home or self-care (01) ==
LOC: HO.LAB 08:51
PROVIDERS: PCP Internal Medicine; Visit Provider Internal Medicine
DX: E03.9 Hypothyroidism, unspecified (principal)
CPT/HCPCS: 36415; 84439; 84443

== ENCOUNTER 2023-09-08 11:26 | Outpatient (AMB) | payer OTHER, SELFPAY ==
[2023-09-08 11:38] VITALS: BP 92/58; PULSE 80; O2SAT 98; BMI 19.7
--- NOTE | 2023-09-08 11:38 | MHC.PC.OV ---
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 Accompanied by: Self / Same As Patient Allergies No Known Allergies [No Known Allergies*] Allergy (Verified 09/08/23 11:42) Medication List - Last Reconciled 09/08/23 by Aura Willis MD acetaminophen ER (Tylenol Arthritis Pain) 650 mg PO Q8H aspirin 81 mg PO DAILY 90 days atorvastatin 10 mg PO QPM 90 days beclomethasone dipropionate 80 mcg/actuation (Qvar RediHaler) 1 inh inhalation BID cholecalciferol (vitamin D3) 1,250 mcg PO QWEEK famotidine 20 mg PO BID hydroxychloroquine (Plaquenil) 200 mg PO DAILY levothyroxine 175 mcg PO DAILY 90 days asccqzjn-unuksfbxy-SS 3.5-10,000-1 mg/mL-unit/mL-% 4 drps otic (ear) left Q8H 10 days srrgmooi-jwovitxue-JO 3.5-10,000-1 mg/mL-unit/mL-% 4 drps otic (ear) left Q8H 10 days nicotine (polacrilex) 2 mg buccal Q1H pantoprazole 40 mg PO DAILY 90 days prednisone 5 mg PO DAILY rivaroxaban (Xarelto) 20 mg PO DAILY 90 days Tobacco use date assessed: 09/08/23 Dental Screening Dental Screen Date: 09/08/23 Did you have a dental visit in the last 12 months?: No Did you have a dental problem in the last 6 months where you did not have access to dental care?: No Was dental information given to patient?: Patient declined HPI 3 month f/u HPI Details 53-year-old female smoker with multiple medical problems she has SLE hypertension COPD obstructive sleep apnea GERD hypercholesterolemia generalized anxiety disorder coming in for follow-up. Last seen in May for ear lavage. Patient's mammogram is due declined colonoscopy bone density up-to-date. [facility] Medical History (Updated 09/08/23 @ 11:50 by Aura Willis MD) Hypertension Impacted cerumen of left ear Annual physical exam Lumbar disc disease Nausea and vomiting Viral syndrome Headache Sinusitis Fever Pulmonary embolism Lumbar disc herniation Ventricular arrhythmia Tobacco abuse Carpal tunnel syndrome GERD (gastroesophageal reflux disease) Vitamin D deficiency Recurrent deep vein thrombosis (DVT) Obstructive sleep apnea COPD (chronic obstructive pulmonary disease) Hypothyroid Hypercholesterolemia SLE (systemic lupus erythematosus) Surgical History History of surgery H/O bilateral oophorectomy History of cholecystectomy Family History Father No problems noted. Mother Myocardial infarction CVD (cardiovascular disease) FH: liver cancer Paternal Aunt Breast cancer Social History Housing: House Alcohol intake: never Patient Tobacco Use Status: Current everyday Tobacco user Tobacco use type: Cigarette Cigarettes Per Day: 15 e-Cigarette/Vaping Use: Never Used Second Hand Smoke Exposure: No service: No Current occupational status: disabled Cognitive needs: No Hearing needs: No Vision needs: Yes (glasses) Questionnaire PHQ-9 Over the last 2 weeks, how often have you been bothered by any of the following problems? 49408 - PHQ-9 Billing: Patient declined-do not bill Source: Developed by Drs. Dick Arrington, Chery Jerez, Joselito Rosario and colleagues, with an educational christa from [employer]. Thrive Questionnaire Date Thrive assessed: 09/08/23 I am a: Patient What is your living situation today?: I have a steady place to live Within the past 12 months, did the food you bought not last and you didn't have the money to get more?: Never true Within the past 12 months, did you worry whether your food would run out before you got money to buy more?: Never true Do you have trouble paying for medicines?: No Do you have trouble getting transportation to medical appointments?: No Do you have trouble paying your heating and electricity bill?: No Do you have trouble taking care of your child, family member or friend?: No Do you have trouble with day-to-day activities such as bathing, preparing meals, shopping, managing finances, etc.?: No Are you currently unemployed and looking for a job?: No Are you interested in more education?: No Please select the resources that you would like help with: None Currently or been in a relationship where the following occur: no concerns reported THRIVE Score: 0 AUDIT C Alcohol Use Questionnaire (AUDIT-C) 1. How often do you have a drink containing alcohol?: Never 3. How often do you have six or more drinks on one occasion?: Never Total Score: 0 ANH-7 AMB Questionnaire ANH-7 Date ANH - 7 assessed: 09/08/23 Source: Developed by Drs. Dick Arrington, Chery Jerez, Joselito Rosario and colleagues, with an educational christa from [employer]. ANH-7 Assessment Billing ANH-7 Assessment Tool: pt declined-do not bill Physical exam (Primary Care) Vital Signs: Last Vital Signs Pulse 80 09/08/23 11:38 BP 92/58 L 09/08/23 11:38 Pulse Ox 98 09/08/23 11:38 Oxygen Delivery Method Room Air 09/08/23 11:38 BMI result Body Mass Index 19.7 Tobacco/Smoking Status: Tobacco use Status Tobacco use date assessed 09/08/23 09/08/23 11:43 Patient Tobacco Use Status Current everyday Tobacco 09/08/23 11:38 Tobacco use type Cigarette 09/08/23 11:38 e-Cigarette/Vaping Use Never Used 09/08/23 11:38 Thrive Assessment: Date of Thrive Assessment Date Thrive assessed 09/08/23 09/08/23 11:43 Currently or been in a relationship where the following occur: no concerns reported Const General: alert; No acute distress Eyes Conjunctivae: conjunctivae normal Resp Auscultation: clear to auscultation bilaterally Cardio Rate: regular rate Rhythm: regular rhythm GI Inspection: Yes normal to inspection Extrem General: Yes normal to inspection and No edema Assessment and Plan Assessment & Plan (1) SLE (systemic lupus erythematosus): Comment: Dr. Hernandez Code(s): M32.9 - Systemic lupus erythematosus, unspecified Qualifiers: Systemic lupus erythematosus type: other Systemic lupus erythematosus organ involvement: unspecified Qualified Code(s): M32.8 - Other forms of systemic lupus erythematosus Plan: Continue to follow-up with Rheumatology (2) COPD (chronic obstructive pulmonary disease): Code(s): J44.9 - Chronic obstructive pulmonary disease, unspecified Qualifiers: COPD type: emphysema Emphysema type: panlobular Qualified Code(s): J43.1 - Panlobular emphysema Plan: Continue with the inhalers (3) Obstructive sleep apnea: Comment: cannot tolerate CPAP Code(s): G47.33 - Obstructive sleep apnea (adult) (pediatric) Plan: Discussed importance of CPAP treatment (4) GERD (gastroesophageal reflux disease): Code(s): K21.9 - Gastro-esophageal reflux disease without esophagitis Qualifiers: Esophagitis presence: without esophagitis Qualified Code(s): K21.9 - Gastro-esophageal reflux disease without esophagitis Plan: Avoid the foods that causes that usually spicy foods, tomato products, juices, coffee, soda and foods that your sensitive to. After eating do not lie down, allow 3-4 hours before in lie down. And keep the head of bed above 30 degrees to avoid the acid from going up. (5) Pulmonary embolism: Comment: January 2016 Code(s): I26.99 - Other pulmonary embolism without acute cor pulmonale Qualifiers: Pulmonary embolism type: other Chronicity: acute Acute cor pulmonale presence: without acute cor pulmonale Qualified Code(s): I26.99 - Other pulmonary embolism without acute cor pulmonale Plan: Patient continues to be on the anticoagulation (6) Hypothyroid: Code(s): E03.9 - Hypothyroidism, unspecified Plan: Continue with thyroid medication August 2023 blood work therapeutic (7) Hypercholesterolemia: Code(s): E78.00 - Pure hypercholesterolemia, unspecified Plan: Avoid fried foods, chicken skin, eggs, butter margarine, pastries and meat. Be it pork or beef they have a lot of cholesterol presently on atorvastatin 10 mg once a day LDL goal of less than 130 and triglyceride of less than 150 (8) Generalized anxiety disorder: Code(s): F41.1 - Generalized anxiety disorder Plan: Stable (9) Osteoporosis: Comment: 01/2023 Code(s): M81.0 - Age-related osteoporosis without current pathological fracture Plan: Discussed about treatment for bone density. Discussed about calcium vitamin-D and long discussion about treatment with alendronate but patient is not ready for medication. (10) Tobacco abuse: Comment: still smoking 08/2023 Code(s): Z72.0 - Tobacco use Plan: will refer to Thoracic surgery lung cancer screening program (11) Colonoscopy refused: Code(s): Z53.20 - Procedure and treatment not carried out because of patient's decision for unspecified reasons Plan: decline colon test Orders: Orders Complete Blood Count Auto Diff Today M32.8 - Other forms of systemic lupus erythematosus Comprehensive Met. Panel Today M32.8 - Other forms of systemic lupus erythematosus Free T4 (Free Thyroxine) Today M32.8 - Other forms of systemic lupus erythematosus Lipid Panel Today E78.00 - Pure hypercholesterolemia, unspecified, M32.8 - Other forms of systemic lupus erythematosus Vitamin B12 and Folate Today M32.8 - Other forms of systemic lupus erythematosus Vitamin D 25-OH Total Today M32.8 - Other forms of systemic lupus erythematosus Referrals Thoracic Surgery Referral Z72.0 - Tobacco use Medications: New cholecalciferol (vitamin D3) 1,250 mcg PO QWEEK 12 caps 0RF M32.8 - Other forms of systemic lupus erythematosus Coding Level of Care Code Est Pt Level 4 (72077) Diagnoses Other forms of systemic lupus erythematosus, unspecified organ involvement status M32.8 Systemic lupus erythematosus type: other Systemic lupus erythematosus organ involvement: unspecified Panlobular emphysema J43.1 COPD type: emphysema Emphysema type: panlobular Obstructive sleep apnea G47.33 Gastroesophageal reflux disease without esophagitis K21.9 Esophagitis presence: without esophagitis Other acute pulmonary embolism without acute cor pulmonale I26.99 Pulmonary embolism type: other Chronicity: acute Acute cor pulmonale presence: without acute cor pulmonale Hypothyroid E03.9 Hypercholesterolemia E78.00 Generalized anxiety disorder F41.1 Osteoporosis M81.0 Tobacco abuse Z72.0 Colonoscopy refused Z53.20
== END 2023-09-08 12:08 | disposition home or self-care (01) ==
PROVIDERS: PCP Internal Medicine; Visit Provider Internal Medicine
DX: J43.1 Panlobular emphysema (principal); M32.8 Other forms of systemic lupus erythematosus; I26.99 Other pulmonary embolism without acute cor pulmonale; G47.33 Obstructive sleep apnea (adult) (pediatric); K21.9 Gastro-esophageal reflux disease without esophagitis; E03.9 Hypothyroidism, unspecified; E78.00 Pure hypercholesterolemia, unspecified; F41.1 Generalized anxiety disorder; M81.0 Age-related osteoporosis without current pathological fracture; Z72.0 Tobacco use; Z53.20 Procedure and treatment not carried out because of patient's decision for unspecified reasons
CPT/HCPCS: 99214

== ENCOUNTER 2023-09-11 12:41 | Outpatient (REF) | payer OTHER, SELFPAY ==
--- NOTE | ~2023-09-11 | MM_ITS ---
EXAMINATION: MM SCREENING DIGITAL BREAST TOMOSYNTHESIS, BILATERAL CLINICAL INFORMATION: Screening. Asymptomatic. COMPARISON: Mammography: This study is compared with prior exams dating back to 2018. TECHNIQUE: Digital breast tomosynthesis is performed in both the craniocaudal and mediolateral oblique views along with computer-aided detection (CAD). Synthesized 2D images are generated from the tomosynthesis. FINDINGS: The breasts are heterogeneously dense, which may obscure small masses (ACR BI-RADS breast composition Category c). There are no significant masses, abnormal calcifications, or other abnormalities. Bilateral benign calcifications are present. There is a pacemaker the superior aspect of the left breast. MM/MM tomosynthesis screening BI IMPRESSION: No mammographic evidence of malignancy. ASSESSMENT: BI-RADS BI-RADS 2 - Benign Findings RECOMMENDATION: Routine annual mammography screening. 1 year F/U This examination should not preclude the clinical evaluation of a suspicious palpable abnormality. This patient's information was entered into a reminder system with a target due date for their next mammogram.
== END 2023-09-11 12:42 | disposition home or self-care (01) ==
LOC: HO.MAMMO 12:41
PROVIDERS: PCP Internal Medicine; Referring Provider Obstetrics & Gynecology Female Pelvic Medicine and Reconstructive Surgery; Visit Provider Internal Medicine
DX: Z12.31 Encounter for screening mammogram for malignant neoplasm of breast (principal)
CPT/HCPCS: 77063; 77067

== ENCOUNTER → 2023-09-11 13:00 | Outpatient (BNV) | payer OTHER, SELFPAY | PROVIDERS: PCP Internal Medicine; Referring Provider Obstetrics & Gynecology Female Pelvic Medicine and Reconstructive Surgery; Visit Provider Radiology Diagnostic Radiology | DX: Z12.31 Encounter for screening mammogram for malignant neoplasm of breast (principal) | CPT/HCPCS: 77063; 77067 ==

== ENCOUNTER 2023-12-07 13:20 | Outpatient (AMB) | payer OTHER, SELFPAY ==
--- NOTE | 2023-12-07 09:02 | MHC.OFFVIS ---
Intake Visit Reasons: Current Smoker Allergies No Known Allergies [No Known Allergies*] Allergy (Verified 09/08/23 11:42) HPI HPI Current Smoker: Details: Initial visit for this 53yo smoker with a 30+PYH. Patient has been smoking since age 17 for 36 years at 1ppd. . Denies marijuana use. Denies second hand smoke exposure. Denies exposure to chemicals or substances like asbestos. . Denies known family history of lung cancer. Denies personal history of cancers. Denies chest CT in last year. . Denies recent travel outside the [place]. Denies recent respiratory illness or recent hospitalization for respiratory issues. Denies testing positive for COVID. Admits receiving COVID Vaccine x2. . History cardiac arrest in 2003 with ICD placed, DVT after sternotomy in 2013, PE/DVT after cholecystectomy in 2015. Hx Lupus on chronic steroids. Denies fever, chills, new/worsening cough, hemoptysis, hoarseness or dysphagia. Denies significant chest pain, significant dyspnea or unintentional weight loss. Patient Lung Cancer Screening Questionnaire reviewed with patient by provider. . Shared Decision Making Completed. Patient meets criteria. Discussed in detail with patient, the risk vs benefit of LDCT screening. Patient consents to proceed with scan. Discussed smoking cessation. [facility] Medical History (Updated 12/07/23 @ 11:11 by Karla Oconnell PA-C) ICD (implantable cardioverter-defibrillator) in place (~2003) History of cardiac arrest (~2003) Ventricular arrhythmia (~2003) History of pulmonary embolus (PE) (~2015) History of DVT (deep vein thrombosis) (~2014) Recurrent deep vein thrombosis (DVT) Hypertension Hypercholesterolemia SLE (systemic lupus erythematosus) (~2001) Hypothyroid COPD (chronic obstructive pulmonary disease) Obstructive sleep apnea Nicotine dependence, cigarettes, uncomplicated GERD (gastroesophageal reflux disease) Vitamin D deficiency Osteoporosis Lumbar disc herniation Lumbar disc disease Nausea and vomiting Viral syndrome Headache Carpal tunnel syndrome Surgical History (Updated 12/07/23 @ 11:08 by Karla Oconnell PA-C) History of implantable cardiac defibrillator (ICD) History of sternectomy History of cholecystectomy History of appendectomy History of History of tubal ligation History of endometrial ablation History of bilateral oophorectomy Family History Father No problems noted. Mother Myocardial infarction CVD (cardiovascular disease) FH: liver cancer Paternal Aunt Breast cancer Social History (Updated 12/07/23 @ 11:11 by Karla Oconnell PA-C) Housing: House Alcohol intake: never Patient Tobacco Use Status: Current everyday Tobacco user Tobacco use type: Cigarette Cigarettes Per Day: 15 Years Smoked: (onset 17yo, 1ppd x 36yrs, 30+PYH) e-Cigarette/Vaping Use: Never Used Second Hand Smoke Exposure: No service: No Current occupational status: disabled Cognitive needs: No Hearing needs: No Vision needs: Yes (glasses) Telehealth Telehealth Telehealth Platform: Telephone Location of provider rendering services: practice address Location of patient: address on file Patient Identification confirmed using: Name, : Yes Telehealth method: voice only Patient verbally consented to treatment: Yes Patient verbally consented to billing insurance company: Yes Patient informed of any privacy concerns related to visit: Yes Minutes spent on Phone/Video with Pt.: 15 Assessment & Plan Assessment & Plan (1) Nicotine dependence, cigarettes, uncomplicated: Comment: (current smoker- onset 17yo, 1ppd x 36yrs, 30+PYH) Code(s): F17.210 - Nicotine dependence, cigarettes, uncomplicated Category: Medical Plan: - SDM visit completed today via phone. - Patient meets criteria for LDCT for lung cancer screening purposes and is asymptomatic. - Smoking cessation counseling offered. Patients can always call [phone]. - Will arrange for a LDCT scan of the chest for screening purposes at [facility]. - Risks, benefits, and alternatives were discussed in detail and the patient agrees to proceed. - Risks discussed include but are not limited to: radiation exposure, anxiety during testing and while awaiting results, false negatives, false positives and possibility of additional intervention such as further imaging or surgical procedures for benign disease. - Benefits are obviously detection of lung cancer at an early stage which can lead to improved outcomes. - Discussed the importance of screening program compliance with adherence to yearly LDCT scan as scheduled - or sooner interval scans for personalized screening regimen. - Discussed follow up plan. Our office will send a letter discussing results and if needed set up phone call and office visit based on CT findings. - Patient educated on results categorization and the management decisions for suspicious findings potentially found on the screening LDCT scan. Any patient with a Lung RADS score of 3 or 4 will be reviewed by a multidisciplinary team at [facility] to form a plan of action in regards to scan findings. - If further work up is warranted for a suspicious lung finding this will be followed by the Lung Cancer Screening program in conjunction with the Thoracic Surgery Department at [facility]. - A copy of the office note and LDCT will be sent to the patient's PCP - as well as documentation on any associated further plans of care. - Incidental findings on LDCT are the PCP's responsibility. These findings are indicated with an S finding on the LDCT Assessment. A note discussing the findings will be sent to the PCP who is then responsible for further management. - All questions answered.? Coding Level of Care Code Lung Cancer Screening G0296 Diagnoses Nicotine dependence, cigarettes, uncomplicated F17.210
== END 2023-12-07 13:22 | disposition home or self-care (01) ==
LOC: HO.HMS 13:20
PROVIDERS: PCP Internal Medicine; Referring Provider Internal Medicine; Visit Provider Physician Assistant Medical
DX: F17.210 Nicotine dependence, cigarettes, uncomplicated (principal)
CPT/HCPCS: G0296

== ENCOUNTER → 2023-12-07 13:20 | Outpatient (BNVA) | payer OTHER, SELFPAY | PROVIDERS: PCP Internal Medicine; Visit Provider Physician Assistant Medical | DX: F17.210 Nicotine dependence, cigarettes, uncomplicated (principal) | CPT/HCPCS: G0296 ==

== ENCOUNTER 2023-12-08 11:03 | Outpatient (REF) | payer OTHER, SELFPAY ==
--- NOTE | ~2023-12-08 | CT_ITS ---
EXAMINATION: CT LOW-DOSE SCREENING CHEST WITHOUT CONTRAST CLINICAL INFORMATION: Nicotine dependence, cigarettes, uncomplicated. The patient has a 36 pack-year history of smoking, having quit 15 years ago. COMPARISON: X-ray chest 08/23/2011. TECHNIQUE: Multidetector volumetric CT imaging of the chest is performed on a Siemens SOMATOM Definition scanner without contrast using low dose technique. Additional 2-D coronal and sagittal reformatted images and axial 3-D maximum intensity projection (MIP) images are generated on the CT workstation. This CT examination was performed using dose optimization techniques as appropriate, variously including the following: *Automated exposure control. *Adjustment of mA and/or kV according to patient size (this includes techniques or standardized protocols for targeted exams where dose is matched to indication/reason for exam; i.e. extremities or head). *Use of iterative reconstruction technique. TOTAL EXAM DLP: 40 mGy-cm CTDIvol: 1.04 mGy FINDINGS: PULMONARY NODULES: A few pulmonary nodules are present includin mm right upper lobe (5:131). 4 mm left upper lobe (5:149). 4 mm ground-glass right upper lobe (5:149). LUNGS: Lungs bilaterally symmetrically expanded. Moderate emphysematous changes are present along with bronchial wall thickening. There are areas of mucus plugging of bronchi (for example, right upper lobe 5:240). No effusion or pneumothorax. Central airways patent. MEDIASTINUM: Status post median sternotomy with left chest wall dual-lead pacemaker. No mediastinal, hilar or axillary adenopathy or free fluid collection. Mild soft tissue density in the anterior mediastinum likely residual thymus. CORONARY ARTERY CALCIFICATION: None visualized on this study. THYROID GLAND: Unremarkable to the extent seen. CARDIOVASCULAR STRUCTURES: Aortic and heart size normal. No pericardial effusion. CHEST WALL/AXILLA: Unremarkable. UPPER ABDOMEN: Included portions of the solid organs in the upper abdomen unremarkable on noncontrast imaging. Status post cholecystectomy. OSSEOUS STRUCTURES: No suspicious focal findings. CT/CT lung screening IMPRESSION: No findings seen suspicious for malignancy. Small pulmonary nodules. ASSESSMENT: 1. Lung-RADS Category 2: Benign appearance or behavior of nodules. N/A. 2. Lung-RADS Category S: Negative. There are no clinically significant or potentially clinically significant findings not related to the lungs requiring urgent additional evaluation. RECOMMENDATION: Continued routine annual low-dose CT lung screening in 1 year is recommended. An order for CT CHEST LOW DOSE CANCER SCREENING ([id number]) can be placed.
== END 2023-12-08 11:04 | disposition home or self-care (01) ==
LOC: HO.CT 11:03
PROVIDERS: PCP Internal Medicine; Visit Provider Nurse Practitioner Family
DX: Z12.2 Encounter for screening for malignant neoplasm of respiratory organs (principal); F17.210 Nicotine dependence, cigarettes, uncomplicated
CPT/HCPCS: 71271

== ENCOUNTER 2023-12-11 11:25 | Outpatient (REF) | payer OTHER, SELFPAY ==
[2023-12-11 11:56] LABS: MANUAL DIFF FLAG NO
[2023-12-11 12:17] LABS: Basophils Percent Auto 0.4 % (0-2); Eosinophils Absolute Auto 0.2 X10*3/uL (0.0-0.4); Eosinophils Percent Auto 2.8 % (0-4); Hematocrit 39.3 % (37.0-47.0); Imm Gran Abs Auto 0.02 X10*3/uL (0.00-0.03); Imm Gran Pct Auto 0.3 % (0.0-0.4); Lymphocytes Absolute Auto 1.1 X10*3/uL (1.2-4.9); Mean Corpuscular HGB Conc 33.1 g/dl (31.0-35.0); Mean Corpuscular Hemoglobin 30.9 pg (27.0-33.0); Mean Corpuscular Volume 93.3 fL (80.0-98.0); Mean Platelet Volume 10.4 fL (9.4-12.3); Monocytes Absolute Auto 0.5 X10*3/uL (0.1-1.2); Monocytes Percent Auto 7.9 % (2-11); Neutrophils Absolute Auto 4.8 x10*3/uL (2.0-8.3); Neutrophils Percent Auto 71.6 % (45-73); Platelet Count 165 X10*3/uL (160-400); Red Blood Count 4.21 X10*6/uL (4.20-5.50); Red Cell Distribution Width 12.1 % (11.0-16.0); White Blood Count 6.7 X10*3/uL (4.8-10.8)
[2023-12-11 12:44] LABS: Alanine Aminotransferase 19 U/L (0-31); Albumin Level 3.9 g/dL (3.5-5.0); Alkaline Phosphatase 51 U/L (39-117); Anion Gap 10 (12-20); Aspartate Amino Transferase 15 U/L (5-31); Bilirubin Total 0.3 mg/dL (0.0-1.0); Blood Urea Nitrogen 15 mg/dL (9-16); Calcium 9.1 mg/dL (8.4-10.2); Carbon Dioxide 29 mmol/L (22-29); Chloride 109 mmol/L (96-108); Cholesterol 127 mg/dL (<200); Estimated Glomerular Filt Rate > 60; Glucose Random 81 mg/dL (60-115); HDL Cholesterol 42 mg/dL (>40); LDL Cholesterol Calculated 63 mg/dL (<100); Potassium 4.8 mmol/L (3.3-5.1); Sodium 143 mmol/L (135-145); Total Protein 6.9 g/dL (6.5-8.0); Triglycerides 110 mg/dL (<150)
[2023-12-11 13:02] LABS: Free T4 (Free Thyroxine) 1.11 ng/dL (0.71-1.85)
[2023-12-11 13:20] LABS: Folate 14.8 ng/mL (> or = 4.0); Vitamin B12 259 pg/mL (200-900)
== END 2023-12-11 11:26 | disposition home or self-care (01) ==
LOC: HO.LAB 11:25
PROVIDERS: PCP Internal Medicine; Visit Provider Internal Medicine
DX: M32.8 Other forms of systemic lupus erythematosus (principal); E78.00 Pure hypercholesterolemia, unspecified
CPT/HCPCS: 36415; 80053; 80061; 82306; 82607; 82746; 84439; 85025

== ENCOUNTER 2023-12-14 09:55 | Outpatient (AMB) | payer OTHER, SELFPAY ==
[2023-12-14 10:31] VITALS: BP 104/62; PULSE 78; O2SAT 98; BMI 19.4
--- NOTE | 2023-12-14 10:31 | MHC.PC.OV ---
Vital Signs 12/14/23 10:31 Height 5 ft 10 in Weight 135 lb BMI 19.4 BP 104/62 Blood Pressure Location Lt brachial Position Sitting Pulse 78 Pulse Source Pulse Oximeter Pulse Oximetry (%) 98 Oxygen Delivery Method Room Air Intake Visit Reasons: Annual Exam, Lower Back Pain Allergies No Known Allergies [No Known Allergies*] Allergy (Verified 12/14/23 10:32) Medication List - Last Reconciled 12/14/23 by Aura Willis MD acetaminophen ER (Tylenol Arthritis Pain) 650 mg PO Q8H aspirin 81 mg PO DAILY 90 days atorvastatin 10 mg PO QPM 90 days beclomethasone dipropionate 80 mcg/actuation (Qvar RediHaler) 1 inh inhalation BID cholecalciferol (vitamin D3) 1,250 mcg PO QWEEK hydroxychloroquine (Plaquenil) 200 mg PO DAILY levothyroxine 175 mcg PO DAILY 90 days pantoprazole 40 mg PO DAILY 90 days prednisone 5 mg PO DAILY rivaroxaban (Xarelto) 20 mg PO DAILY 90 days Tobacco use date assessed: 09/08/23 Dental Screening Dental Screen Date: 09/08/23 HPI Annual Exam HPI Details 53-year-old female smoker with a history of SLE COPD obstructive sleep apnea GERD history of pulmonary embolism hypothyroidism hypercholesterolemia generalized anxiety disorder coming in for physical exam. Last seen in August 2023. Mammogram is up-to-date colonoscopy declined bone density up-to-date. Because with the smoking patient had a CT scan done for the lung cancer screening November 2023 results are pending occ dizzy decrease hearing but states fluid dicharge 2 months low back pain 1 week, no chest pain, no b/b sx ON LICENSE OF [facility] Medical History (Updated 12/14/23 @ 11:30 by Aura Willis MD) ICD (implantable cardioverter-defibrillator) in place (~2003) History of cardiac arrest (~2003) Ventricular arrhythmia (~2003) History of pulmonary embolus (PE) (~2015) History of DVT (deep vein thrombosis) (~2014) Recurrent deep vein thrombosis (DVT) Hypertension Hypercholesterolemia SLE (systemic lupus erythematosus) (~2001) Hypothyroid COPD (chronic obstructive pulmonary disease) Obstructive sleep apnea Nicotine dependence, cigarettes, uncomplicated GERD (gastroesophageal reflux disease) Vitamin D deficiency Osteoporosis Lumbar disc herniation Lumbar disc disease Nausea and vomiting Viral syndrome Headache Carpal tunnel syndrome Surgical History (Updated 12/07/23 @ 11:08 by Karla Oconnell PA-C) History of implantable cardiac defibrillator (ICD) History of sternectomy History of cholecystectomy History of appendectomy History of History of tubal ligation History of endometrial ablation History of bilateral oophorectomy Family History Father No problems noted. Mother Myocardial infarction CVD (cardiovascular disease) FH: liver cancer Paternal Aunt Breast cancer Social History (Updated 12/07/23 @ 11:11 by Karla Oconnell PA-C) Housing: House Alcohol intake: never Patient Tobacco Use Status: Current everyday Tobacco user Tobacco use type: Cigarette Cigarettes Per Day: 15 Years Smoked: (onset 17yo, 1ppd x 36yrs, 30+PYH) e-Cigarette/Vaping Use: Never Used Second Hand Smoke Exposure: No service: No Current occupational status: disabled Cognitive needs: No Hearing needs: No Vision needs: Yes (glasses) Questionnaire PHQ-9 Over the last 2 weeks, how often have you been bothered by any of the following problems? 1. Little interest or pleasure in doing things: not at all 2. Feeling down, depressed, or hopeless: not at all 3. Trouble falling or staying asleep, or sleeping too much: not at all 4. Feeling tired or having little energy: not at all 5. Poor appetite or overeating: not at all 6. Feeling bad about yourself - or that you are a failure or have let yourself or your family down: not at all 7. Trouble concentrating on things, such as reading the newspaper or watching television: not at all 8. Moving or speaking so slowly that other people could have noticed. Or the opposite - being so fidgety or restless that you have been moving around a lot more than usual: not at all 9. Thoughts that you would be better off or of hurting yourself in some way: not at all Total score: 0 Depression Screening Interpretation: Negative Depression Screening Done: Yes [id number] - PHQ-9 Billing: Yes Source: Developed by Drs. Dick Arrington, Chery Jerez, Joselito Rosario and colleagues, with an educational christa from [email or web address]. Thrive Questionnaire Date Thrive assessed: 09/08/23 AUDIT C Alcohol Use Questionnaire (AUDIT-C) 1. How often do you have a drink containing alcohol?: Never 3. How often do you have six or more drinks on one occasion?: Never Total Score: 0 ANH-7 AMB Questionnaire ANH-7 Date ANH - 7 assessed: 09/08/23 Source: Developed by Drs. Dick Arrington, Chery Jerez, Joselito Rosario and colleagues, with an educational christa from [email or web address]. Review of Systems Const Denies poor appetite and Denies weakness Eyes Denies no additional complaints ENT Reports Normal hearing present, Denies dizziness, Denies nasal congestion, Denies tinnitus and Denies sore throat Card Denies chest pain, Denies syncope, Denies rapid heart rate and Denies dyspnea Resp Denies cough and Denies dyspnea GI Denies change in stool character, Reports constipation, Denies diarrhea, Denies nausea and Denies vomiting Denies urinary frequency, Denies difficulty voiding and Denies dysuria Neuro Reports Normal hearing present, Denies confusion, Denies dizziness, Denies syncope and Denies weakness Psych Denies confusion Physical exam (Primary Care) Vital Signs: Last Vital Signs Pulse 78 12/14/23 10:31 BP 104/62 12/14/23 10:31 Pulse Ox 98 12/14/23 10:31 Oxygen Delivery Method Room Air 12/14/23 10:31 BMI result Body Mass Index 19.4 Tobacco/Smoking Status: Tobacco use Status Tobacco use date assessed 09/08/23 12/14/23 10:33 Patient Tobacco Use Status Current everyday Tobacco 12/14/23 10:33 Tobacco use type Cigarette 12/14/23 10:33 e-Cigarette/Vaping Use Never Used 12/14/23 10:33 PHQ-9: PHQ-9 Score PHQ-9: Total score 0 12/14/23 10:47 Depression Screening Interpretation: Negative Thrive Assessment: Date of Thrive Assessment Date Thrive assessed 09/08/23 12/14/23 10:33 Const General: No confusion Orientation/consciousness: No confusion HENMT Head: Yes normocephalic Ears: external ears normal and TM's normal bilaterally Face and sinus: Yes normal facial exam Mouth: moist mucous membranes Throat: Yes tonsils normal Eyes Conjunctivae: conjunctivae normal Pupils: Equal, round and reactive pupils present and Pupil accommodation reflex normal Direct Ophthalmoscopy: normal light reflex Neck Neck: No lymphadenopathy Thyroid: Thyroid normal Chest Chest palpation & inspection: normal inspection of the chest Resp Effort & Inspection: normal respiratory effort and no audible wheezes Auscultation: clear to auscultation bilaterally, no crackles, no wheezes and lung sounds not diminished Cardio Rate: regular rate Rhythm: regular rhythm Peripheral pulses: radial pulses present and dorsalis pedis present GI Palpation (GI): no masses Auscultation: normal bowel sounds and normoactive bowel sounds Rectal Exam - Female: deferred Skin General skin exam: no rashes or lesions noted Rashes: no rashes Neuro General: No confusion Cranial nerves: Yes Equal, round and reactive pupils present and Yes Normal hearing present Cognition (Neuro): normal cognition Gait exam (Neuro): Normal gait present Motor exam (neuro): 5/5 motor strength present throughout Deep tendon reflexes (DTR's): Right brachioradialis reflex intensity grade: 2+, Left brachioradialis reflex intensity grade: 2+, Right patellar reflex intensity grade: 2+ and Left patellar reflex intensity grade: 2+ Extrem General: No edema Assessment and Plan Assessment & Plan (1) Annual physical exam: Code(s): Z00.00 - Encounter for general adult medical examination without abnormal findings (2) ICD (implantable cardioverter-defibrillator) in place: Onset Date: ~2003 Comment: (ICD placed after ventricular arrest - 2003) Code(s): Z95.810 - Presence of automatic (implantable) cardiac defibrillator Plan: Continue to follow cardiology (3) History of pulmonary embolus (PE): Onset Date: ~2015 Comment: (Dx 2016 - 2 months s/p lap king) Code(s): Z86.711 - Personal history of pulmonary embolism Plan: Presently anti dilatation with Xarelto (4) Hypercholesterolemia: Code(s): E78.00 - Pure hypercholesterolemia, unspecified Plan: Avoid fried foods, chicken skin, eggs, butter margarine, pastries and meat. Be it pork or beef they have a lot of cholesterol LDL goal of less than 130 on atorvastatin 10 mg at bedtime (5) SLE (systemic lupus erythematosus): Onset Date: ~2001 Comment: (Dr. Hernandez - dx 2001) Code(s): M32.9 - Systemic lupus erythematosus, unspecified Qualifiers: Systemic lupus erythematosus type: other Systemic lupus erythematosus organ involvement: unspecified Qualified Code(s): M32.8 - Other forms of systemic lupus erythematosus Plan: Continue to follow-up with Rheumatology Plaquenil (6) Hypothyroid: Code(s): E03.9 - Hypothyroidism, unspecified Plan: Continue with thyroid medication (7) COPD (chronic obstructive pulmonary disease): Code(s): J44.9 - Chronic obstructive pulmonary disease, unspecified Qualifiers: COPD type: emphysema Emphysema type: panlobular Qualified Code(s): J43.1 - Panlobular emphysema Plan: On QVAR and albuterol (8) Generalized anxiety disorder: Code(s): F41.1 - Generalized anxiety disorder Plan: Stable (9) GERD (gastroesophageal reflux disease): Code(s): K21.9 - Gastro-esophageal reflux disease without esophagitis Qualifiers: Esophagitis presence: without esophagitis Qualified Code(s): K21.9 - Gastro-esophageal reflux disease without esophagitis Plan: Avoid the foods that causes that usually spicy foods, tomato products, juices, coffee, soda and foods that your sensitive to. After eating do not lie down, allow 3-4 hours before in lie down. And keep the head of bed above 30 degrees to avoid the acid from going up. Patient advised to stop smoking Orders: Orders XR lumbar spine 2-3V Today M54.50 - Low back pain, unspecified PT Evaluation and Treatment Today M54.50 - Low back pain, unspecified Medications: New cyclobenzaprine 5 mg PO TID PRN 30 tabs 0RF muscle spasm M54.50 - Low back pain, unspecified Coding Level of Care Code Est Pt Prev Care 40-64y(75047) Diagnoses Annual physical exam Z00.00 ICD (implantable cardioverter-defibrillator) in place Z95.810 History of pulmonary embolus (PE) Z86.711 Hypercholesterolemia E78.00 Other forms of systemic lupus erythematosus, unspecified organ involvement status M32.8 Systemic lupus erythematosus type: other Systemic lupus erythematosus organ involvement: unspecified Hypothyroid E03.9 Panlobular emphysema J43.1 COPD type: emphysema Emphysema type: panlobular Generalized anxiety disorder F41.1 Gastroesophageal reflux disease without esophagitis K21.9 Esophagitis presence: without esophagitis
== END 2023-12-14 11:37 | disposition home or self-care (01) ==
PROVIDERS: Visit Provider Internal Medicine
DX: Z00.00 Encounter for general adult medical examination without abnormal findings (principal); M32.8 Other forms of systemic lupus erythematosus; J43.1 Panlobular emphysema; Z95.810 Presence of automatic (implantable) cardiac defibrillator; Z86.711 Personal history of pulmonary embolism; E78.00 Pure hypercholesterolemia, unspecified; E03.9 Hypothyroidism, unspecified; F41.1 Generalized anxiety disorder; K21.9 Gastro-esophageal reflux disease without esophagitis
CPT/HCPCS: 99396

== ENCOUNTER 2023-12-14 11:51 | Outpatient (REF) | payer OTHER, SELFPAY ==
--- NOTE | ~2023-12-14 | XR_ITS ---
EXAMINATION: XR LUMBOSACRAL SPINE CLINICAL INFORMATION: Low back pain unspecified, patient states no trauma or injury, low back pain. COMPARISON: None available. TECHNIQUE: 3 views of the lumbosacral spine. FINDINGS: Surgical clips right upper quadrant. Slight levoscoliosis of the lumbar spine. Facet arthritis in the lower lumbar spine. Mild multilevel lumbar spondylosis. Mild loss of disc space height at L3-L4. XR/XR lumbar spine 2-3V IMPRESSION: Mild multilevel lumbar spondylosis with mild loss of disc space height at L3-L4.
== END 2023-12-14 11:52 | disposition home or self-care (01) ==
LOC: HO.XRAY 11:51
PROVIDERS: PCP Internal Medicine; Visit Provider Internal Medicine
DX: M54.50 Low back pain, unspecified (principal)
CPT/HCPCS: 72100

== ENCOUNTER 2024-02-13 10:01 | Outpatient (REF) | payer OTHER, SELFPAY ==
--- NOTE | 2024-02-13 10:04 | EMG_ITS ---
Bilateral median and ulnar motor and sensory studies were performed. Bilateral radial sensory studies were performed and bilateral median and lateral antecubital brachial sensory studies were performed. Paraspinal muscles were tested with a needle. IMPRESSION: This study revealed mild left sensory ulnar neuropathy, but otherwise no significant abnormality to suggest entrapment neuropathy of median or ulnar nerve or plexopathy or radiculopathy. MD CAILIN Donohue/MODL / [id number]
== END 2024-02-13 10:02 | disposition home or self-care (01) ==
LOC: HO.NEURO 10:01
PROVIDERS: PCP Internal Medicine; Visit Provider Internal Medicine
DX: R20.0 Anesthesia of skin (principal)
CPT/HCPCS: 95886; 95913

== ENCOUNTER 2024-03-04 14:38 | Outpatient (AMB) | payer OTHER, SELFPAY ==
--- NOTE | 2024-03-04 14:38 | A.OFFPC_ITS ---
Vital Signs 03/04/24 14:41 Height 5 ft 10 in Weight 138 lb 14.259 oz BMI 19.9 BP 100/68 Blood Pressure Location Lt brachial Position Sitting Pulse 77 Pulse Source Pulse Oximeter Pulse Oximetry (%) 98 Oxygen Delivery Method Room Air Intake Visit Reasons: [facility] 02/28 Intake Note: Patient is here to follow-up after [place] [facility] [place] Allergies No Known Allergies [No Known Allergies*] Allergy (Verified 12/14/23 10:32) Medication List - Last Reconciled 03/04/24 by Bev Pereira PA-C acetaminophen ER (Tylenol Arthritis Pain) 650 mg PO Q8H aspirin 81 mg PO DAILY 90 days atorvastatin 10 mg PO QPM 90 days beclomethasone dipropionate 80 mcg/actuation (Qvar RediHaler) 1 inh inhalation BID cholecalciferol (vitamin D3) 1,250 mcg PO QWEEK cyclobenzaprine 5 mg PO TID PRN hydroxychloroquine (Plaquenil) 200 mg PO DAILY levothyroxine 175 mcg PO DAILY 90 days pantoprazole 40 mg PO DAILY 90 days prednisone 5 mg PO DAILY rivaroxaban (Xarelto) 20 mg PO DAILY 90 days Tobacco use date assessed: 09/08/23 Dental Screening Dental Screen Date: 09/08/23 HPI EDF [facility] 02/28 HPI Details 53-year-old female smoker with a history of SLE, COPD, obstructive sleep apnea, GERD, history of pulmonary embolism, hypothyroidism, hypercholesterolemia, and generalized anxiety disorder last seen by Dr. Willis coming in for hospital discharge follow up. In review of the notes, patient was [place] [facility] [place] after a fall. Patient slipped on a puddle of water and fell on left side with unknown head strike or loss of consciousness. CT was significant for left hip contusion and T11 compression fracture. Patient was consulted by Neurosurgery who found T11 fracture to be chronic. Left ankle x- ray negative. Chest CT found a 3 mm right apical nodule with optional CT at 12 months if high risk. She tells us she continues to have pain and bruising of her left side. She is being seen by [facility] visiting nurse and was told she can no longer take ibuprofen for the pain. She has been using Tylenol for the pain with mild relief. She also endorses episodes of room spinning while changing positions in bed which began after the fall. She is due to undergo vertigo physical therapy in the next coming weeks. [facility] Medical History (Updated 03/04/24 @ 15:23 by Bev Pereira PA-C) ICD (implantable cardioverter-defibrillator) in place (~2003) History of cardiac arrest (~2003) Ventricular arrhythmia (~2003) History of pulmonary embolus (PE) (~2015) History of DVT (deep vein thrombosis) (~2014) Recurrent deep vein thrombosis (DVT) Hypertension Hypercholesterolemia SLE (systemic lupus erythematosus) (~2001) Hypothyroid COPD (chronic obstructive pulmonary disease) Obstructive sleep apnea Nicotine dependence, cigarettes, uncomplicated GERD (gastroesophageal reflux disease) Vitamin D deficiency Osteoporosis Lumbar disc herniation Lumbar disc disease Nausea and vomiting Viral syndrome Headache Carpal tunnel syndrome Surgical History (Updated 12/07/23 @ 11:08 by Karla Oconnell PA-C) History of implantable cardiac defibrillator (ICD) History of sternectomy History of cholecystectomy History of appendectomy History of History of tubal ligation History of endometrial ablation History of bilateral oophorectomy Family History Father No problems noted. Mother Myocardial infarction CVD (cardiovascular disease) FH: liver cancer Paternal Aunt Breast cancer Social History (Updated 12/07/23 @ 11:11 by Karla Oconnell PA-C) Housing: House Alcohol intake: never Patient Tobacco Use Status: Current everyday Tobacco user Tobacco use type: Cigarette Cigarettes Per Day: 15 Years Smoked: (onset 17yo, 1ppd x 36yrs, 30+PYH) e-Cigarette/Vaping Use: Never Used Second Hand Smoke Exposure: No service: No Current occupational status: disabled Cognitive needs: No Hearing needs: No Vision needs: Yes (glasses) Questionnaire Thrive Questionnaire Date Thrive assessed: 09/08/23 AUDIT C Alcohol Use Questionnaire (AUDIT-C) 1. How often do you have a drink containing alcohol?: Never 3. How often do you have six or more drinks on one occasion?: Never Total Score: 0 ANH-7 AMB Questionnaire ANH-7 Date ANH - 7 assessed: 09/08/23 Source: Developed by Drs. Dick Arrington, Chery Jerez, Joselito Rosario and colleagues, with an educational christa from [employer]. Review of Systems Const Denies body aches, Denies chills, Denies fever(s), Reports headache(s) and Denies poor appetite Eyes Reports no additional complaints ENT Reports dizziness and Reports headache(s) Card Denies chest pain, Denies syncope, Denies edema, Denies irregular heart rhythm, Reports lightheadedness and Denies dyspnea Resp Denies cough and Denies dyspnea GI Denies abdominal pain, Denies nausea and Denies vomiting Reports no additional complaints Musc Details: Left-sided hip, shoulder, ankle pain Denies abnormal gait Skin/Breast Reports as per HPI Neuro Denies abnormal gait, Reports dizziness, Denies syncope and Reports headache(s) Psych Reports no additional complaints Physical exam (Primary Care) Vital Signs: Last Vital Signs Pulse 77 03/04/24 14:41 BP 100/68 03/04/24 14:41 Pulse Ox 98 03/04/24 14:41 Oxygen Delivery Method Room Air 03/04/24 14:41 BMI result Body Mass Index 19.9 Tobacco/Smoking Status: Tobacco use Status Tobacco use date assessed 09/08/23 03/04/24 14:39 Patient Tobacco Use Status Current everyday Tobacco 03/04/24 14:39 Tobacco use type Cigarette 03/04/24 14:39 e-Cigarette/Vaping Use Never Used 03/04/24 14:39 Thrive Assessment: Date of Thrive Assessment Date Thrive assessed 09/08/23 03/04/24 14:39 Const General: cooperative, healthy appearing, comfortable and no acute distress Orientation/consciousness: patient oriented x3 HENMT Head: Yes normocephalic Ears: hearing grossly normal bilaterally General nose exam: Normal external nose present Eyes General: appearance normal, both eyes and all related structures Conjunctivae: conjunctivae normal Neck Neck: Yes full ROM and Yes no lymphadenopathy Resp Effort & Inspection: normal respiratory effort Auscultation: clear to auscultation bilaterally, no crackles, no rales, no rhonchi and no wheezes Cardio Rate: regular rate Rhythm: regular rhythm Skin Other: Bruising over pacemaker site. Bruising on left hip General skin exam: no rashes or lesions noted Neuro General: patient oriented x3 Gait exam (Neuro): Normal gait present Extrem General: Yes normal to inspection, Yes full ROM and No edema Psych Affect: normal affect Attitude: cooperative Insight: Good insight present (Psych) Judgement: Good judgement present (Psych) Assessment and Plan Assessment & Plan (1) Left hip pain: Code(s): M25.552 - Pain in left hip Plan: Patient's primary concern is the left hip pain which is poorly managed on Tylenol. She has also been having difficulty sleeping due to the pain. Patient was previously on cyclobenzaprine for a previous issue with good relief. We will trial course of cyclobenzaprine for pain management. Follow up as needed for this concern. (2) Left ankle pain: Code(s): M25.572 - Pain in left ankle and joints of left foot Plan: Patient continues to have mild left ankle pain but is able to ambulate. Ankle x-ray normal at [facility]. (3) Lung nodule: Code(s): R91.1 - Solitary pulmonary nodule Plan: 3 mm lung nodule seen incidentally on chest CT at [facility]. Nodule was also appreciated on last low-dose CT scan 11/2023 also 3 mm. Continue to follow up with yearly low-dose CT scans as part of lung cancer screening. Plan This note was constructed using voice recognition software. While every effort has been made to ensure accuracy and inventory control supervisor, still areas may have been included sometimes these areas may affect the content or meeting of the given symptoms. Total time spent caring for the patient today was 30 minutes. This includes time spent before the visit reviewing the chart, time spent during the visit, and time spent after the visit and documentation. Medications: Refilled cyclobenzaprine 5 mg PO TID PRN 30 tabs 0RF muscle spasm M54.50 - Low back pain, unspecified Coding Level of Care Code Tele Est Pt Level 4 (75503) Diagnoses Left hip pain M25.552 Left ankle pain M25.572 Lung nodule R91.1
[2024-03-04 14:41] VITALS: BP 100/68; PULSE 77; O2SAT 98; BMI 19.9
== END 2024-03-04 15:20 | disposition home or self-care (01) ==
PROVIDERS: PCP Internal Medicine
DX: M25.552 Pain in left hip (principal); M25.572 Pain in left ankle and joints of left foot; R91.1 Solitary pulmonary nodule
CPT/HCPCS: 99214

== ENCOUNTER 2024-03-14 09:17 | Outpatient (AMB) | payer OTHER, SELFPAY ==
[2024-03-14 09:19] VITALS: BP 106/60; PULSE 80; O2SAT 96; BMI 20.2
--- NOTE | 2024-03-14 09:19 | A.OFFPC_ITS ---
Vital Signs 03/14/24 09:19 Height 5 ft 10 in Weight 141 lb BMI 20.2 BP 106/60 Blood Pressure Location Lt brachial Position Sitting Pulse 80 Pulse Source Pulse Oximeter Pulse Oximetry (%) 96 Oxygen Delivery Method Room Air Intake Visit Reasons: follow up Allergies No Known Allergies [No Known Allergies*] Allergy (Verified 03/14/24 09:20) Tobacco use date assessed: 09/08/23 Dental Screening Dental Screen Date: 09/08/23 HPI follow up HPI Details 53-year-old female smoker with multiple medical problems GERD, generalized anxiety disorder, obstructive sleep apnea COPD hypothyroid SLE hypercholesterolemia history of pulmonary embolism history of cardiac arrest with an ICD coming in for follow-up. Last seen in March 04 with left hip pain ankle pain. Patient had CT scan of the lungs showing pulmonary nodule and continue to follow-up on a yearly basis. Patient's mammogram is up-to-date colonoscopy declined bone density is up-to-date 02/16/2023. Review of the notes had a CT scan of the brain in 02/28/2024 having fall recently landed on the left side with left arm and shoulder pain patient also had a CT scan of the abdomen and pelvis mild compression fracture T11 age indeterminate with contusion on the left lateral hip. Received also notes from Cardiology 02/17/2024 ICD check showing end of useful life. As for the thoracic compression fracture not consistent with acute compression fracture advised out of bed and ambulatory. Patient also had a nerve conduction test recentlyThis study revealed mild left sensory ulnar neuropathy, but otherwise no significant abnormality to suggest entrapment neuropathy of median or ulnar nerve or plexopathy or radiculopathy. complains of LUNA and neck pain having PT now at home, does get vertigo also [facility] Medical History (Updated 03/14/24 @ 09:37 by Aura Willis MD) ICD (implantable cardioverter-defibrillator) in place (~2003) History of cardiac arrest (~2003) Ventricular arrhythmia (~2003) History of pulmonary embolus (PE) (~2015) History of DVT (deep vein thrombosis) (~2014) Recurrent deep vein thrombosis (DVT) Hypertension Hypercholesterolemia SLE (systemic lupus erythematosus) (~2001) Hypothyroid COPD (chronic obstructive pulmonary disease) Obstructive sleep apnea Nicotine dependence, cigarettes, uncomplicated GERD (gastroesophageal reflux disease) Vitamin D deficiency Osteoporosis Lumbar disc herniation Lumbar disc disease Nausea and vomiting Viral syndrome Headache Carpal tunnel syndrome Surgical History (Updated 12/07/23 @ 11:08 by Karla Oconnell PA-C) History of implantable cardiac defibrillator (ICD) History of sternectomy History of cholecystectomy History of appendectomy History of History of tubal ligation History of endometrial ablation History of bilateral oophorectomy Family History Father No problems noted. Mother Myocardial infarction CVD (cardiovascular disease) FH: liver cancer Paternal Aunt Breast cancer Social History (Updated 12/07/23 @ 11:11 by Karla Oconnell PA-C) Housing: House Alcohol intake: never Patient Tobacco Use Status: Former Tobacco user Tobacco use type: Cigarette Cigarettes Per Day: 15 Years Smoked: (onset 17yo, 1ppd x 36yrs, 30+PYH) e-Cigarette/Vaping Use: Never Used Second Hand Smoke Exposure: No service: No Current occupational status: disabled Cognitive needs: No Hearing needs: No Vision needs: Yes (glasses) Questionnaire PHQ-9 Over the last 2 weeks, how often have you been bothered by any of the following problems? 1. Little interest or pleasure in doing things: not at all 2. Feeling down, depressed, or hopeless: not at all 3. Trouble falling or staying asleep, or sleeping too much: not at all 4. Feeling tired or having little energy: not at all 5. Poor appetite or overeating: not at all 6. Feeling bad about yourself - or that you are a failure or have let yourself or your family down: not at all 7. Trouble concentrating on things, such as reading the newspaper or watching television: not at all 8. Moving or speaking so slowly that other people could have noticed. Or the opposite - being so fidgety or restless that you have been moving around a lot more than usual: not at all 9. Thoughts that you would be better off or of hurting yourself in some way: not at all Total score: 0 Depression Screening Interpretation: Negative Depression Screening Done: Yes 19034 - PHQ-9 Billing: Yes Source: Developed by Drs. Dick Arrington, Chery Jerez, Joselito Rosario and colleagues, with an educational christa from [employer]. Thrive Questionnaire Date Thrive assessed: 09/08/23 AUDIT C Alcohol Use Questionnaire (AUDIT-C) 1. How often do you have a drink containing alcohol?: Never 3. How often do you have six or more drinks on one occasion?: Never Total Score: 0 ANH-7 AMB Questionnaire ANH-7 Date ANH - 7 assessed: 09/08/23 Source: Developed by Drs. Dick Arrington, Chery Jerez, Joselito Rosario and colleagues, with an educational christa from [employer]. Physical exam (Primary Care) Vital Signs: Last Vital Signs Pulse 80 03/14/24 09:19 BP 106/60 03/14/24 09:19 Pulse Ox 96 03/14/24 09:19 Oxygen Delivery Method Room Air 03/14/24 09:19 BMI result Body Mass Index 20.2 Tobacco/Smoking Status: Tobacco use Status Tobacco use date assessed 09/08/23 03/14/24 09:25 Patient Tobacco Use Status Former Tobacco user 03/14/24 09:25 Tobacco use type Cigarette 03/14/24 09:25 e-Cigarette/Vaping Use Never Used 03/14/24 09:25 PHQ-9: PHQ-9 Score PHQ-9: Total score 0 03/14/24 09:25 Depression Screening Interpretation: Negative Thrive Assessment: Date of Thrive Assessment Date Thrive assessed 09/08/23 03/14/24 09:25 Const General: alert; No acute distress Eyes Conjunctivae: conjunctivae normal Resp Auscultation: clear to auscultation bilaterally Cardio Rate: regular rate Rhythm: regular rhythm GI Inspection: Yes normal to inspection Extrem General: Yes normal to inspection and No edema Assessment and Plan Assessment & Plan (1) Fall: Code(s): W19.XXXA - Unspecified fall, initial encounter Plan: Patient is sent for physical therapy (2) Left hip pain: Code(s): M25.552 - Pain in left hip Plan: With advise physical therapy (3) Left ankle pain: Code(s): M25.572 - Pain in left ankle and joints of left foot Plan: With advised physical therapy and orthopedic referral done (4) Lung nodule: Comment: Incidental finding 01/2024 right Code(s): R91.1 - Solitary pulmonary nodule Plan: Patient is advised to have lung cancer screening on a yearly basis (5) ICD (implantable cardioverter-defibrillator) in place: Onset Date: ~2003 Comment: (ICD placed after ventricular arrest - 2003) February 21, [address] hurd Code(s): Z95.810 - Presence of automatic (implantable) cardiac defibrillator Plan: Continue to follow-up with cardiology (6) Osteoporosis: Comment: 01/2023 Code(s): M81.0 - Age-related osteoporosis without current pathological fracture Plan: Discussed about calcium and vitamin-D and medications to help with osteoporosis (7) Compression fracture of T11 vertebra: Comment: Incidental finding new since 2022 Code(s): S22.080A - Wedge compression fracture of T11-T12 vertebra, initial encounter for closed fracture Plan: Due to bone sclerosis, neurosurgeon notes not acute.. Sent for physical therapy (8) Tobacco abuse: Comment: still smoking 08/2023 stopped 01/2024 Code(s): Z72.0 - Tobacco use Plan: Patient has requested for the gum to help with urges after stopping smoking. Orders: Orders Complete Blood Count Auto Diff Today W19.XXXA - Unspecified fall, initial encounter Vitamin B12 and Folate Today W19.XXXA - Unspecified fall, initial encounter Vitamin D 25-OH Total Today W19.XXXA - Unspecified fall, initial encounter PT Evaluation and Treatment Today M25.552 - Pain in left hip, M25.572 - Pain in left ankle and joints of left foot, S22.080A - Wedge compression fracture of T11-T12 vertebra, initial encounter for closed fracture, W19.XXXA - Unspecified fall, initial encounter Comprehensive Met. Panel Today W19.XXXA - Unspecified fall, initial encounter Free T4 (Free Thyroxine) Today W19.XXXA - Unspecified fall, initial encounter Thyroid Stimulating Hormone Today W19.XXXA - Unspecified fall, initial encounter Lipid Panel Today E78.00 - Pure hypercholesterolemia, unspecified, W19.XXXA - Unspecified fall, initial encounter Referrals Orthopedics Referral M25.552 - Pain in left hip, M25.572 - Pain in left ankle and joints of left foot, W19.XXXA - Unspecified fall, initial encounter Medications: New nicotine (polacrilex) 4 mg buccal Q2H 100 ea 1RF F17.210 - Nicotine dependence, cigarettes, uncomplicated tramadol 50 mg PO DAILY 30 tabs 0RF M25.572 - Pain in left ankle and joints of left foot Refilled levothyroxine 175 mcg PO DAILY 90 days 90 tabs 3RF E03.9 - Hypothyroidism, unspecified Discontinued cyclobenzaprine Discontinued Reason: Doctor's Order 5 mg PO TID PRN 30 tabs 0RF muscle spasm M54.50 - Low back pain, unspecified Coding Level of Care Code Est Pt Level 4 (54191) Diagnoses Fall W19.XXXA Left hip pain M25.552 Left ankle pain M25.572 Lung nodule R91.1 ICD (implantable cardioverter-defibrillator) in place Z95.810 Osteoporosis M81.0 Compression fracture of T11 vertebra S22.080A Tobacco abuse Z72.0
== END 2024-03-14 09:55 | disposition home or self-care (01) ==
PROVIDERS: PCP Internal Medicine; Visit Provider Internal Medicine
DX: M25.552 Pain in left hip (principal); S22.080A Wedge compression fracture of T11-T12 vertebra, initial encounter for closed fracture; W19.XXXA Unspecified fall, initial encounter; M25.572 Pain in left ankle and joints of left foot; R91.1 Solitary pulmonary nodule; Z95.810 Presence of automatic (implantable) cardiac defibrillator; M81.0 Age-related osteoporosis without current pathological fracture; Z72.0 Tobacco use
CPT/HCPCS: 99214

== ENCOUNTER 2024-04-19 08:24 | Outpatient (REF) | payer OTHER, SELFPAY ==
[2024-04-19 08:38] LABS: MANUAL DIFF FLAG NO
[2024-04-19 08:48] LABS: Basophils Percent Auto 0.6 % (0-2); Eosinophils Absolute Auto 0.1 X10*3/uL (0.0-0.4); Eosinophils Percent Auto 3.6 % (0-4); Hemoglobin 13.4 g/dl (12.0-16.0); Imm Gran Abs Auto 0.01 X10*3/uL (0.00-0.03); Imm Gran Pct Auto 0.3 % (0.0-0.4); Lymphocytes Absolute Auto 1.2 X10*3/uL (1.2-4.9); Lymphocytes Percent Auto 31.7 % (20-40); Mean Corpuscular HGB Conc 33.5 g/dl (31.0-35.0); Mean Corpuscular Hemoglobin 30.9 pg (27.0-33.0); Mean Corpuscular Volume 92.4 fL (80.0-98.0); Mean Platelet Volume 10.4 fL (9.4-12.3); Monocytes Absolute Auto 0.4 X10*3/uL (0.1-1.2); Monocytes Percent Auto 9.9 % (2-11); Neutrophils Percent Auto 53.9 % (45-73); Platelet Count 140 X10*3/uL (160-400); Red Blood Count 4.33 X10*6/uL (4.20-5.50); Red Cell Distribution Width 12.6 % (11.0-16.0); White Blood Count 3.6 X10*3/uL (4.8-10.8)
[2024-04-19 09:30] LABS: Alanine Aminotransferase 26 U/L (0-31); Albumin Level 4.1 g/dL (3.5-5.0); Alkaline Phosphatase 41 U/L (39-117); Anion Gap 9 (12-20); Aspartate Amino Transferase 21 U/L (5-31); Bilirubin Total 0.3 mg/dL (0.0-1.0); Blood Urea Nitrogen 15 mg/dL (9-16); Calcium 8.8 mg/dL (8.4-10.2); Carbon Dioxide 28 mmol/L (22-29); Chloride 109 mmol/L (96-108); Cholesterol 147 mg/dL (<200); Estimated Glomerular Filt Rate > 60; Glucose Random 94 mg/dL (60-115); HDL Cholesterol 45 mg/dL (>40); LDL Cholesterol Calculated 89 mg/dL (<100); Potassium 4.2 mmol/L (3.3-5.1); Sodium 142 mmol/L (135-145); Total Protein 7.3 g/dL (6.5-8.0); Triglycerides 66 mg/dL (<150)
[2024-04-19 09:50] LABS: Free T4 (Free Thyroxine) 0.99 ng/dL (0.71-1.85); Vitamin D 25-OH Total 27.9 ng/mL (>30)
[2024-04-19 10:01] LABS: Folate 16.7 ng/mL (> or = 4.0); Vitamin B12 225 pg/mL (200-900)
== END 2024-04-19 08:25 | disposition home or self-care (01) ==
LOC: HO.LAB 08:24
PROVIDERS: PCP Internal Medicine; Visit Provider Internal Medicine
DX: E78.00 Pure hypercholesterolemia, unspecified (principal); Z91.81 History of falling
CPT/HCPCS: 36415; 80053; 80061; 82306; 82607; 82746; 84439; 84443; 85025

== ENCOUNTER 2024-04-22 16:46 | Outpatient (AMB) | payer OTHER, SELFPAY ==
--- NOTE | 2024-04-22 16:47 | A.OFFPC_ITS ---
Vital Signs 04/22/24 16:49 Height 5 ft 10 in Weight 147 lb BMI 21.1 BP 110/70 Blood Pressure Location Lt brachial Position Sitting Pulse 72 Pulse Source Pulse Oximeter Pulse Oximetry (%) 97 Oxygen Delivery Method Room Air Intake Visit Reasons: LBP Gum Mixer Required: No Accompanied by: Self / Same As Patient Allergies No Known Allergies [No Known Allergies*] Allergy (Verified 04/22/24 16:51) Tobacco use date assessed: 09/08/23 Dental Screening Dental Screen Date: 04/22/24 Did you have a dental visit in the last 12 months?: No Did you have a dental problem in the last 6 months where you did not have access to dental care?: No Was dental information given to patient?: Patient has dentist HPI LBP HPI Details 53-year-old female smoker with multiple medical problems generalized anxiety disorder GERD osteoporosis COPD hypothyroid SLE hypercholesterolemia history of pulmonary embolism history of cardiac arrest with an ICD in place thoracic compression fracture coming in for follow-up. Last seen in March 14 after fall having left hip and ankle pain. Patient is up-to-date with mammogram declined colonoscopy up-to-date with bone density. Patient gets blood work done under Rheumatology in [facility] had normal blood count done in April 12 normal electrolytes with normal kidney function normal blood sugar normal liver function test. C-reactive protein is less than 3 CK is normal sed rate is normal patient complains of having low back pain and the tramadol once a day is not working. Patient will be seeing neurosurgeon tomorrow. Although she mentions she does not want surgery. Meanwhile she has been taking alendronate and explained to her that we will retest bone density next year. Reviewed labs with her and discussed that the thyroid medication is therapeutic. As for the smoking patient states stopped smoking 2 months ago and so far so good. [facility] Medical History (Updated 04/22/24 @ 17:34 by Aura Willis MD) ICD (implantable cardioverter-defibrillator) in place (~2003) History of cardiac arrest (~2003) Ventricular arrhythmia (~2003) History of pulmonary embolus (PE) (~2015) History of DVT (deep vein thrombosis) (~2014) Recurrent deep vein thrombosis (DVT) Hypertension Hypercholesterolemia SLE (systemic lupus erythematosus) (~2001) Hypothyroid COPD (chronic obstructive pulmonary disease) Obstructive sleep apnea Nicotine dependence, cigarettes, uncomplicated GERD (gastroesophageal reflux disease) Vitamin D deficiency Osteoporosis Lumbar disc herniation Lumbar disc disease Nausea and vomiting Viral syndrome Headache Carpal tunnel syndrome Surgical History History of implantable cardiac defibrillator (ICD) History of sternectomy History of cholecystectomy History of appendectomy History of History of tubal ligation History of endometrial ablation History of bilateral oophorectomy Family History Father No problems noted. Mother Myocardial infarction CVD (cardiovascular disease) FH: liver cancer Paternal Aunt Breast cancer Social History Housing: House Alcohol intake: never Patient Tobacco Use Status: Former Tobacco user Tobacco use type: Cigarette Cigarettes Per Day: 15 Years Smoked: (onset 17yo, 1ppd x 36yrs, 30+PYH) e-Cigarette/Vaping Use: Never Used Second Hand Smoke Exposure: No service: No Current occupational status: disabled Cognitive needs: No Hearing needs: No Vision needs: Yes (glasses) Questionnaire Thrive Questionnaire Date Thrive assessed: 09/08/23 Are you currently unemployed and looking for a job?: No ANH-7 AMB Questionnaire ANH-7 Date ANH - 7 assessed: 09/08/23 Source: Developed by Drs. Dick Arrington, Chery Jerez, Joselito Rosario and colleagues, with an educational christa from [employer]. Physical exam (Primary Care) Vital Signs: Last Vital Signs Pulse 72 04/22/24 16:49 BP 110/70 04/22/24 16:49 Pulse Ox 97 04/22/24 16:49 Oxygen Delivery Method Room Air 04/22/24 16:49 BMI result Body Mass Index 21.1 Tobacco/Smoking Status: Tobacco use Status Tobacco use date assessed 09/08/23 04/22/24 16:54 Patient Tobacco Use Status Former Tobacco user 04/22/24 16:54 Tobacco use type Cigarette 04/22/24 16:54 e-Cigarette/Vaping Use Never Used 04/22/24 16:54 Thrive Assessment: Date of Thrive Assessment Date Thrive assessed 09/08/23 04/22/24 16:54 Const General: alert; No acute distress Eyes Conjunctivae: conjunctivae normal Resp Auscultation: clear to auscultation bilaterally Cardio Rate: regular rate Rhythm: regular rhythm GI Inspection: Yes normal to inspection Extrem General: Yes normal to inspection and No edema Assessment and Plan Assessment & Plan (1) Compression fracture of T11 vertebra: Comment: Incidental finding new since 2022 Code(s): S22.080A - Wedge compression fracture of T11-T12 vertebra, initial encounter for closed fracture Plan: Keep active and avoid lifting. Patient will be seeing the neurosurgeon tomorrow. Otherwise increase in tramadol prescribed. (2) GERD (gastroesophageal reflux disease): Code(s): K21.9 - Gastro-esophageal reflux disease without esophagitis Qualifiers: Esophagitis presence: without esophagitis Qualified Code(s): K21.9 - Gastro-esophageal reflux disease without esophagitis Plan: Avoid the foods that causes that usually spicy foods, tomato products, juices, coffee, soda and foods that your sensitive to. After eating do not lie down, allow 3-4 hours before in lie down. And keep the head of bed above 30 degrees to avoid the acid from going up. (3) Generalized anxiety disorder: Code(s): F41.1 - Generalized anxiety disorder Plan: Continue with present medication (4) Osteoporosis: Comment: 01/2023 Code(s): M81.0 - Age-related osteoporosis without current pathological fracture Plan: Patient has been placed on alendronate once a week and up-to-date with bone density will repeat bone density next year (5) COPD (chronic obstructive pulmonary disease): Code(s): J44.9 - Chronic obstructive pulmonary disease, unspecified Qualifiers: COPD type: emphysema Emphysema type: panlobular Qualified Code(s): J43.1 - Panlobular emphysema Plan: Continue with inhalers QVAR. (6) Hypothyroid: Code(s): E03.9 - Hypothyroidism, unspecified Plan: Continue with thyroid med (7) SLE (systemic lupus erythematosus): Onset Date: ~2001 Comment: (Dr. Hernandez - dx 2001) Code(s): M32.9 - Systemic lupus erythematosus, unspecified Qualifiers: Systemic lupus erythematosus type: other Systemic lupus erythematosus organ involvement: unspecified Qualified Code(s): M32.8 - Other forms of systemic lupus erythematosus Plan: Patient follows up with Rheumatology and last blood work with sed rate is within normal limits (8) Hypercholesterolemia: Code(s): E78.00 - Pure hypercholesterolemia, unspecified Plan: Avoid fried foods, chicken skin, eggs, butter margarine, pastries and meat. Be it pork or beef they have a lot of cholesterol on atorvastatin 10 mg once a day (9) History of pulmonary embolus (PE): Onset Date: ~2015 Comment: (Dx 2016 - 2 months s/p lap king) Code(s): Z86.711 - Personal history of pulmonary embolism Plan: Continue with blood thinner (10) Nicotine dependence, cigarettes, uncomplicated: Comment: (current smoker- onset 17yo, 1ppd x 36yrs, 30+PYH) STOPPED 01/2024 Code(s): F17.210 - Nicotine dependence, cigarettes, uncomplicated Plan: stopped 01/2024 Medications: Changed From tramadol 50 mg PO DAILY 30 tabs 0RF To tramadol 50 mg PO TID 90 tabs 0RF Coding Level of Care Code Est Pt Level 4 (37146) Diagnoses Compression fracture of T11 vertebra S22.080A Gastroesophageal reflux disease without esophagitis K21.9 Esophagitis presence: without esophagitis Generalized anxiety disorder F41.1 Osteoporosis M81.0 Panlobular emphysema J43.1 COPD type: emphysema Emphysema type: panlobular Hypothyroid E03.9 Other forms of systemic lupus erythematosus, unspecified organ involvement status M32.8 Systemic lupus erythematosus type: other Systemic lupus erythematosus organ involvement: unspecified Hypercholesterolemia E78.00 History of pulmonary embolus (PE) Z86.711 Nicotine dependence, cigarettes, uncomplicated F17.210
[2024-04-22 16:49] VITALS: BP 110/70; PULSE 72; O2SAT 97; BMI 21.1
== END 2024-04-22 17:58 | disposition home or self-care (01) ==
PROVIDERS: PCP Internal Medicine; Visit Provider Internal Medicine
DX: K21.9 Gastro-esophageal reflux disease without esophagitis (principal); J43.1 Panlobular emphysema; S22.080A Wedge compression fracture of T11-T12 vertebra, initial encounter for closed fracture; M32.8 Other forms of systemic lupus erythematosus; F41.1 Generalized anxiety disorder; M81.0 Age-related osteoporosis without current pathological fracture; E03.9 Hypothyroidism, unspecified; E78.00 Pure hypercholesterolemia, unspecified; Z86.711 Personal history of pulmonary embolism; F17.210 Nicotine dependence, cigarettes, uncomplicated

== ENCOUNTER → 2024-04-22 16:46 | Outpatient (BNVA) | payer OTHER, SELFPAY | PROVIDERS: PCP Internal Medicine; Visit Provider Internal Medicine | DX: S22.080D Wedge compression fracture of T11-T12 vertebra, subsequent encounter for fracture with routine healing (principal); K21.9 Gastro-esophageal reflux disease without esophagitis; F41.1 Generalized anxiety disorder; M81.0 Age-related osteoporosis without current pathological fracture; J43.1 Panlobular emphysema; E03.9 Hypothyroidism, unspecified; M32.8 Other forms of systemic lupus erythematosus; E78.00 Pure hypercholesterolemia, unspecified; F17.210 Nicotine dependence, cigarettes, uncomplicated; Z86.711 Personal history of pulmonary embolism; Z71.6 Tobacco abuse counseling; Z71.3 Dietary counseling and surveillance | CPT/HCPCS: 99212 ==

== ENCOUNTER 2024-08-01 15:47 | Outpatient (AMB) | payer OTHER, SELFPAY ==
[2024-08-01 15:48] VITALS: BP 102/80; PULSE 85; O2SAT 96; BMI 22.5
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
== END 2024-08-01 16:54 | disposition home or self-care (01) ==
PROVIDERS: PCP Internal Medicine; Visit Provider Internal Medicine
DX: M54.2 Cervicalgia (principal); M25.512 Pain in left shoulder; M25.552 Pain in left hip; Z04.3 Encounter for examination and observation following other accident; V89.2XXA Person injured in unspecified motor-vehicle accident, traffic, initial encounter

== ENCOUNTER → 2024-08-01 15:47 | Outpatient (BNVA) | payer OTHER, SELFPAY | PROVIDERS: PCP Internal Medicine; Visit Provider Internal Medicine | DX: M54.2 Cervicalgia (principal); M25.512 Pain in left shoulder; M25.552 Pain in left hip | CPT/HCPCS: 96127 ==

== ENCOUNTER 2024-09-09 15:28 | Outpatient (AMB) | payer OTHER, SELFPAY ==
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
[2024-09-09 15:55] VITALS: BP 108/62; PULSE 84; O2SAT 96; BMI 22.5
== END 2024-09-09 16:32 | disposition home or self-care (01) ==
PROVIDERS: PCP Internal Medicine; Visit Provider Internal Medicine
DX: M25.512 Pain in left shoulder (principal); M54.2 Cervicalgia; V89.2XXA Person injured in unspecified motor-vehicle accident, traffic, initial encounter; M25.552 Pain in left hip; R42 Dizziness and giddiness; S09.90XS Unspecified injury of head, sequela

== ENCOUNTER → 2024-09-09 15:28 | Outpatient (BNVA) | payer OTHER, SELFPAY | PROVIDERS: PCP Internal Medicine; Visit Provider Internal Medicine | DX: M25.512 Pain in left shoulder (principal); M54.2 Cervicalgia; M25.552 Pain in left hip; R42 Dizziness and giddiness; S09.90XS Unspecified injury of head, sequela | CPT/HCPCS: 96127 ==

== ENCOUNTER 2024-10-07 14:19 | Outpatient (AMB) | payer OTHER, SELFPAY ==
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
[2024-10-07 14:22] VITALS: BP 108/60; PULSE 87; O2SAT 96; BMI 22.4
--- OUTSIDE RECORDS SUMMARY | 2024-10-07 16:24 | XMS_ITS | Continuity of Care Document ---
Author Organization [facility] Address [address] [place] [id number] Care Team Providers Care Hybrid Tester Name Role Phone Po Aura HEAD Primary Care Physician [place] [facility] [place] 09/14/24 [facility] [address] [place] [id number] Encounter Type: Triage Allergies, Adverse Reactions, Alerts No Known Allergies Medications alendronate 70 mg oral tablet PLEASE SEE ATTACHED FOR DETAILED DIRECTIONS Start Date: 08/26/24 Status: Ordered Repeat number: 1 aspirin 81 mg oral delayed release tablet 81 mg, 1, tablet, By Mouth, Daily, # 30 tablet, Refills 6, Tot. Refills 6, Maintenance, 01/16/17 8:02:02 AM EDT, Route to Pharmacy Electronically, [facility]/pharmacy #[id number] Start Date: 01/16/17 Stop Date: 08/14/17 Status: Ordered Quantity: 30.0 Unit: tablet Repeat number: 7 atorvastatin 10 mg oral tablet 1 tablet = 10 mg, By Mouth, Daily, # 30 tablet, 6 Refills, Maintenance, Tablet, Route to Pharmacy Electronically, [id number], [facility]/pharmacy #[id number] Start Date: 01/16/17 Stop Date: 08/14/17 Status: Ordered Quantity: 30.0 Unit: tablet Repeat number: 7 cholecalciferol 50,000 intl units oral capsule 1 capsule = 50,000 International_Units, By Mouth, Every 7 days, 0 Refills, Maintenance, 03/31/15 4:14:53 PM EDT Start Date: 03/31/15 Status: Ordered Repeat number: 1 levothyroxine 0.1 mg oral tablet See Instructions, 175 mcg PO QD, 0 Refills, Maintenance, 04/02/22 6:58:00 PM EDT, Tablet, Partial fill upon patient request if the prescription is for a schedule II opioid drug. Start Date: 04/02/22 Status: Ordered Repeat number: 1 pantoprazole 40 mg oral delayed release tablet 1 tablet = 40 mg, By Mouth, Daily, # 30 tablet, 0 Refills, Maintenance, 02/28/24 11:58:00 PM EDT, ECTablet Start Date: 02/28/24 Status: Ordered Quantity: 30.0 Unit: tablet Repeat number: 1 Plaquenil Sulfate 200 mg oral tablet 1 tablet = 200 mg, By Mouth, 2 times a day, # 180 tablet, 0 Refills, Maintenance, 03/26/10 4:09:58 AM EDT, Tablet Start Date: 03/26/10 Status: Ordered Quantity: 180.0 Unit: tablet Repeat number: 1 predniSONE 5 mg oral tablet 1 tablet = 5 mg, By Mouth, Daily, 0 Refills, Maintenance, 04/02/22 6:58:00 PM EDT, Tablet, Partial fill upon patient request if the prescription is for a schedule II opioid drug. Start Date: 04/02/22 Status: Ordered Repeat number: 1 rivaroxaban 20 mg oral tablet = 20 mg, By Mouth, Daily at supper, 0 Refills, Maintenance, 04/02/22 6:58:00 PM EDT, Tablet, Partial fill upon patient request if the prescription is for a schedule II opioid drug. Start Date: 04/02/22 Status: Ordered Repeat number: 1 Walker See Instructions, # 1 each, Maintenance, Use for 2 days, 02/29/24 1:44:00 PM EDT, Supply Start Date: 02/29/24 Status: Ordered Quantity: 1.0 Unit: each Repeat number: 1 Problem List Condition Confirmation Course Effective Dates Status H ealth Status Informant Cardiac arrest Confirmed Active Hypothyroidism Confirmed Active SSS (sick sinus syndrome) Confirmed Active SLE (systemic lupus erythematosus) Confirmed Active Social History Social History Type Response Smoking Status Former smoker, quit more than 30 days ago entered on: 07/19/24 Sex Sex Representation Female (finding) Patient Care team information Care Team Personnel Name: Fernando Mcbride RN Position: [facility] RN Member Role: Primary Care Nurse Name: Indira Chen RN Position: [facility] OB RN Member Role: Primary Care Nurse Name: Jennifer Welch RN Position: [facility] ED RN W/OE and Tasks Member Role: Primary Care Nurse Name: Dorota Tran RN Position: [facility] RN Member Role: Primary Care Nurse Name: Deonna Carrera RN Position: [facility] RN Member Role: Primary Care Nurse Name: Garrett Bauer RN Position: [facility] SN RN Member Role: Primary Care Nurse Name: Aura Willis MD Position: Reference Physician Member Role: PCP Address: [address] [place] [address] Telecom: Name: Marleni Martell RN Position: [facility] Cardiac Rehab Mgr Member Role: Primary Care Nurse Name: Adeline Gomez RN Position: [facility] RN Member Role: Primary Care Nurse Care Team Related Persons Name: NAIMA ALTAMIRANO Name: JERMAINE ALTAMIRANO Insurance Providers Guarantor name: NITO ALTAMIRANO Health Plan Information #: 1 Payer: [employer] Member Number: NA Policy Number: NA Group Number: NA
--- OUTSIDE RECORDS SUMMARY | 2024-10-07 16:24 | XMS_ITS | Data Portability ---
Author Organization [facility], [facility] Address [address] [place] [address] Care Team Providers Care Divinity Professor Name Role Phone NIKKI COSTA Primary Care Provider [phone] Assessment No assessment recorded. Plan of Treatment Reminders Order Date Submit Date Provider Last Modified By Organization Details Last Modified Time Details Appointments RECHECK 15 2024 10:15A M Lilia Grewal PA-C Not available Not available Not available Lab None recorded. Referral None recorded. Procedures None recorded. Surgeries None recorded. Imaging XR, thoracic spine, 2 view - 304 recheck t-spine 2v. 2023 024 [facility], [address], [address], [place], [address], 06/06/2024 13:58:55 CT, thoracic spine, w/o contrast - ct t-spine evaluate history of compressi on fracture 2023 024 [facility] [place], [address], [address], [place], [address], 06/21/2024 04:00:58 XR, thoracic spine, 2 view - 304, 2 views of T-spine 2023 024 [facility], [address], [address], [place], [address], 04/24/2024 11:47:26 MRI, thoracic spine, w/o contrast - Evaluate compressi on fracture, resistent pain despite conservat neto treatment . 2023 024 [facility] [address], [place], [address], 04/24/2024 11:47:26 XR, thoracic spine, 2 view - rm 316 thoracic spine make sure T11 on xr 2023 024 [email or web address], [address], [address], [place], [address], 03/19/2024 15:28:59 Medication Orders None recorded. Patient TargetsNo targets recorded. Patient InstructionsNo instructions recorded. Reason for Referral None Reported. Results Created Date Observation Date Name Description Value Unit Range Abnormal Flag Note LastModifiedBy Organization Detail LastModifiedTime 03/19/20 24 03/19/2024 XR, thora cic spine , 2 view http:/ [email or web address] ?Encry pted=s hAaTro YD8dLq bEUv6g %2BXZw aYqtaq 0bqfl% 2Fg9IQ a4ajBk vP9nXo QUaueC m3YtLR FvZlgJ JJ8mAn HZtai3 7a6598 AC0Kra 3iGVqD eUC8mr 84%3D INTERFACE [facility] [address], [place], [address], 03/19/2024 14:51:03 03/19/20 24 03/19/2024 XR, thora cic spine , 2 view http:/ [email or web address] ?Encry pted=s hAaTro YD8dLq bEUv6g %2BXZw aYqtaq 0bqfl% 2Fg9IQ a4ajBk vP9nXo QUaueC m3YtLR FvZl JJ8Wauconda HZtai3 8q6659 AC0Kra 3iGVqD eUC8mr 84%3D INTERFACE [facility] [address], [place], [address], 03/19/2024 14:51:05 04/23/20 24 04/23/2024 XR, thora cic spine , 2 view http:/ [email or web address] ?Encry pted=s hAaTro YD8dLq bEUv6g %2BXZw aYqtaq 0bqfl% 2Fg9IQ a4ajBk vP9nXo QUaueC m3YtLR FvZlgJ JJ8mAn HZtai3 2t0258 AC0Kqa nWFVae mKiQtr MwF INTERFACE [facility] [address], [place], [address], 04/23/2024 12:39:40 04/23/20 24 04/23/2024 XR, thora cic spine , 2 view http:/ [email or web address] ?Encry pted=s hAaTro YD8dLq bEUv6g %2BXZw aYqtaq 0bqfl% 2Fg9IQ a4ajBk vP9nXo QUaueC m3YtLR FvZlgJ JJ8mAn HZtai3 3q2350 AC0Kqa nWFVae mKiQtr MwF INTERFACE [facility] [address], [place], [address], 04/23/2024 12:39:42 06/06/20 24 06/06/2024 XR, thora cic spine , 2 view http:/ [email or web address] ?Encry pted=s hAaTro YD8dLq bEUv6g %2BXZw aYqtaq 0bqfl% 2Fg9IQ a4ajBk vP9nXo QUaueC m3YtLR FvZlgJ JJ8mAn HZtai3 6r4697 AC0Kqa HqFVau gKiQtr MwF INTERFACE [facility] [address], [place], [address], 06/06/2024 12:24:38 06/06/20 24 06/06/2024 XR, thora cic spine , 2 view http:/ [email or web address] ?Encry pted=s hAaTro YD8dLq bEUv6g %2BXZw aYqtaq 0bqfl% 2Fg9IQ a4ajBk vP9nXo QUaueC m3YtLR FvZlgJ JJ8mAn HZtai3 4d6336 AC0Kqa HqFVau gKiQtr MwF INTERFACE [facility] [address], [place], [address], 06/06/2024 12:24:40 06/21/20 24 06/20/2024 CT, thora cic spine , w/o contr ast No observ ation record ed. [email or web address] [facility] [place] [address], [place], [address], 07/01/2024 14:34:05 Result Notes None recorded. Procedures Surgical History None recorded. Imaging Results Imaging Date Name Status LastModified by [facility] Details LastModified Time 03/19/2024 XR, thoracic spine, 2 view completed INTERFACE [facility] [address], [place], [address], 03/19/2024 14:51:03 03/19/2024 XR, thoracic spine, 2 view completed INTERFACE [facility] [address], [place], [address], 03/19/2024 14:51:05 04/23/2024 XR, thoracic spine, 2 view completed INTERFACE [facility] [address], [place], [address], 04/23/2024 12:39:40 04/23/2024 XR, thoracic spine, 2 view completed INTERFACE [facility] [address], [place], [address], 04/23/2024 12:39:42 06/06/2024 XR, thoracic spine, 2 view completed INTERFACE [facility] [address], [place], [address], 06/06/2024 12:24:38 06/06/2024 XR, thoracic spine, 2 view [facility] [address], [place], [address], 06/06/2024 12:24:40 06/20/2024 CT, thoracic spine, w/o contrast [facility] [place] [address], [place], [address], 07/01/2024 14:34:05 Procedure Notes None recorded. Medical Equipment None Reported. Allergies No known drug allergies Medications Name Sig Start Date Stop Date Status Note LastModified by Organization Details LastModified Time cyclobenzap rine 10 mg tablet TAKE 1 TABLET BY MOUTH EVERY DAY FOR 10 DAYS active Not Available Not Available No t Available levothyroxi ne 175 mcg tablet TAKE 1 TABLET ORALLY DAILY FOR 90 DAYS active Not Available Not Available No t Available neomycin-po lymyxin-hyd rocort 3.5 mg/mL-10,00 0 unit/mL-1 % ear solution PLACE 4 DROPS INTO THE LEFT EAR EVERY 8 HOURS FOR 10 DAYS 04/23 completed Not Available Not Available Not Available atorvastati n 10 mg tablet TAKE 1 TABLET ORALLY EVERY EVENING FOR 90 DAYS active Not Available Not Available No t Available prednisone 20 mg tablet TAKE 2 TABLETS BY MOUTH DAILY FOR 5 DAYS active Not Available Not Available No t Available alendronate 70 mg tablet PLEASE SEE ATTACHED FOR DETAILED DIRECTION S active Not Available Not Available No t Available prednisone 5 mg tablet TAKE 1 TABLET (5 MG TOTAL) BY MOUTH DAILY. active Not Available Not Available No t Available aspirin 81 mg tablet,lily yed release TAKE 1 TABLET ORALLY DAILY FOR 90 DAYS active Not Available Not Available No t Available tramadol 50 mg tablet TAKE 1 TABLET BY MOUTH THREE TIMES A DAY active Not Available Not Available No t Available nicotine (polacrilex ) [address] GUM IN MOUTH BUCCALLY EVERY 2 HOURS active Not Available Not Available No t Available prednisone 1 mg tablet TAKE 4 TABS BY MOUTH EVERY AM WITH BREAKFAST active Not Available Not Available No t Available pantoprazol e 40 mg tablet,lily yed release TAKE 1 TABLET BY MOUTH EVERY DAY active Not Available Not Available No t Available levothyroxi ne 150 mcg tablet TAKE 1 TABLET BY MOUTH EVERY DAY FOR 30 DAYS 04/23 completed Not Available Not Available Not Available ergocalcife rol (vitamin D2) 1,250 mcg (50,000 unit) capsule TAKE 1 CAPSULE BY MOUTH ONE TIME PER WEEK active Not Available Not Available No t Available hydroxychlo roquine 200 mg tablet TAKE 1 TABLET BY MOUTH TWICE A DAY active Not Available Not Available No t Available cyclobenzap rine 5 mg tablet TAKE 1 TABLET BY MOUTH 3 TIMES A DAY NEEDED FOR MUSCLE SPASM active Not Available Not Available No t Available pregabalin 25 mg capsule TAKE 1 CAP NIGHTLY 7 DAYS, IF OK TAKE 2 CAPS NIGHTLY 7 DAYS, IF OK TAKE 3 CAPS NIGHTLY active Not Available Not Available No t Available Xarelto 20 mg tablet TAKE 1 TABLET BY MOUTH EVERY DAY FOR 90 DAYS MUST ADMINISTE R WITH EVENING MEAL active Not Available Not Available No t Available Vitals Date Recorded Body height Body mass index (BMI) Body weight Provider Name and Address Organization Details Last Updated DateTime 03/19/2024 175.26 cm 20.4 kg/m2 71723.75 g DOMINGO ORTIZ [facility] 03/19/2024 14:25:41 Date Recorded Body height Body mass index (BMI) Body weight Provider Name and Address Organization Details Last Updated DateTime 04/23/2024 175.26 cm 20.4 kg/m2 08383.75 g Sam Woodson [facility] 04/23/2024 12:28:59 Date Recorded Body height Body mass index (BMI) Body weight Provider Name and Address Organization Details Last Updated DateTime 06/06/2024 175.26 cm 20.4 kg/m2 82516.75 g Kristine morales [facility] 06/06/2024 12:07:08 Date Recorded Body height Body mass index (BMI) Body weight Provider Name and Address Organization Details Last Updated DateTime 07/18/2024 175.26 cm 20.4 kg/m2 02005.75 g SARAH BETH HILLS [facility] 07/18/2024 09:35:39 Social History None recorded. Functional Status None recorded. Mental Status None recorded. Family History Nothing Reported. Medical History No medical history recorded. Gynecological HistoryNo gynecological history recorded. Obstetrics History GPAL:G 0 P 0 0 0 0 Past Encounters Encounter ID Performer Location Encounter Start Date Encounter Closed Date Diagnosis/Indication Diagnosis SNOMED-CT Code Diagnosis ICD10 Code Diagnosis Note [id number] Lilia Grewal PA-C [facility] [address] [place] [address] 03/19/2024 13:25:52 04/24/2024 09:02:10 Pain in thoracic spine 372627426 M54.6 Sprain of left ankle 942 5234672 0732467 S93.402A [id number] Lilia Grewal PA-C [facility] [address] [place] [address] 04/23/2024 12:19:35 05/21/2024 16:13:59 Pain in thoracic spine 051419611 M54.6 [id number] Lilia Grewal PA-C [facility] [address] [place] [address] 06/06/2024 11:11:41 06/20/2024 12:16:58 Compression fracture of thoracic spine 429404954 S22.000D [id number] Lilia Grewal PA-C [facility] [address] [place] [address] 07/18/2024 09:13:32 08/08/2024 11:45:54 Compression fracture of thoracic spine 391338484 S22.080S [id number] Lilia Grewal PA-C [facility] - [facility] [address] [place] [address] 09/05/2024 10:31:45 09/24/2024 17:28:17 Lumbar radiculopathy 735630994 M54.16 Health Concerns Section Related Observation LastModified by Organization Detai ls LastModified Time None Recorded Concern Status LastModified by Organization Details LastModified Time None Recorded Advance Directives Directive None Recorded Payers Encounter Date Sequence Insurance Name Policy Number Policy Silverman Covered Member ID Silverman Member ID Guarantor Name 03/19/2024 1 [facility] (MEDICAID HMO) DAVID Puckett [id number] Jackie Malic 04/23/2024 1 [facility] PL[facility] (MEDICAID O) DAVID Mejia Malrey [id number] Jackie Malic 06/06/2024 1 [facility] PL[facility] (MEDICAID HMO) DAVID Puckett [id number] Jackie Puckett 07/18/2024 1 [facility] (MEDICAID HMO) DAVID Puckett [id number] Jackie Puckett 09/05/2024 1 [facility] (MEDICAID HMO) DAVID Puckett [id number] Jackie Puckett Notes Date Note Type Note Provider Name and Address Organization Details Recorded Time 03/19/2024 text/html I am seeing the patient today under the supervision of Dr. Davis who was available but who did not see the patient. HPI: Patient presents for evaluation of mid back pain since a fall 02/28/24. No significant radicular component. Also complaining about her left ankle. Using a walker. Mechanical in nature. Worse with prologued sitting and standing. Rates pain moderate. Denies bowel or bladder dysfunction. TREATMENTS: Minimal Past family, medical, social history and review of systems has been reviewed, updated and signed by me and is located in the patient? ? ?s chart. PHYSICAL EXAM: The patient is well appearing, alert and oriented x3 and in no acute distress. Gait is normal. Inspection of the spine reveals no step off, deformity or overlying skin changes. Range of motion of the lumbar spine is 70% of normal. Hip and knee range of motion full without discomfort. The spine is tender over the T11 level. Nontender over the greater trochanters. Straight leg raise is negative. Strength and sensation intact. Re? e xes normal. No ankle clonus. X-RAY REPORT: X-rays ordered, obtained and reviewed at [facility]. 2 views of the t spine reveal mild compression fracture T11. Osteoporosis noted. Degenerative disc disease noted. MRI REVIEWED: MRI of the lumbar spine reviewed in the office with the patient reveals [ ] ASSESSMENT & PLAN: T11 mild compression fracture from fall 02/27. TLSO brace prescribed and she will continue calcium and vitamin D. She should follow up i 4 weeks for repeat xrays of the T spine. Ankle ASO brace ordered. She needs to make an apt for the ankle. [facility] speech recognition psychiatric attendant software was used to create portions of this document. An attempt at proofreading has been made to minimize errors. Please call for corrections. Lilia Grewal PA-C [address], [place], [address], [facility] 03/19/2024 15:14:29 04/23/2024 text/html I am seeing the patient today under the supervision of Dr. Davis who was available but who did not see the patient. HPI: Patient presents for re-evaluation of mid back pain since a fall 02/28/24. She is having severe pain that awakens her at night. She also has radiating leg pain especially the left side. Worse with prologued sitting and standing. Rates pain moderate. She is wearing the TLSO brace and taking Tramadol without relief. Denies bowel or bladder dysfunction. Past family, medical, social history and review of systems has been reviewed, updated and signed by me and is located in the patient? ? ?s chart. PHYSICAL EXAM: The patient is well appearing, alert and oriented x3 and in no acute distress. Gait is normal. Inspection of the spine reveals no step off, deformity or overlying skin changes. Range of motion of the lumbar spine is 70% of normal. Hip and knee range of motion full without discomfort. The spine is tender over the T11 level. Nontender over the greater trochanters. Straight leg raise is negative. Strength and sensation intact. Re? e xes normal. No ankle clonus. X-RAY REPORT: X-rays ordered, obtained and reviewed at [facility]. 2 views of the t spine reveal mild compression fracture T11. Osteoporosis noted. Degenerative disc disease noted. MRI REVIEWED: MRI of the spine reviewed in the office with the patient reveals [ ] ASSESSMENT & PLAN: T11 mild compression fracture from fall 02/27. Recommend MRI thoracic spine to further evaluate the fracture given the pain she is having and lack of improvement since last visit. She is having some radicular complaints but mid back is worse than the low back. She will continue calcium and vitamin D. F/u to be arranged [facility] speech recognition psychiatric attendant software was used to create portions of this document. An attempt at proofreading has been made to minimize errors. Please call for corrections. Lilia Grewal PA-C [address], [place], [address], [facility] 04/23/2024 13:34:28 06/06/2024 text/html I am seeing the patient today under the supervision of Dr. Davis who was available but who did not see the patient. HPI: Patient presents for a recheck of mid back pain since a fall 02/28/24. Patient has a known T11 mild compression fracture. She reports she is still having the same pain without improvement. She was unable to have MRI due to a pacemaker/defibrilla tor. She is having severe pain that awakens her at night. She also has radiating leg pain especially the left side. Worse with prologued sitting and standing. Rates pain moderate. She is wearing the TLSO brace and taking Tramadol without relief. Denies bowel or bladder dysfunction. Past family, medical, social history and review of systems has been reviewed, updated and signed by me and is located in the patient? ? ?s chart. PHYSICAL EXAM: The patient is well appearing, alert and oriented x3 and in no acute distress. Gait is normal. Inspection of the spine reveals no step off, deformity or overlying skin changes. Range of motion of the lumbar spine is 70% of normal. Hip and knee range of motion full without discomfort. The spine is tender over the T10/T11 level. Nontender over the greater trochanters. Straight leg raise is negative. Strength and sensation intact. Re? e xes normal. No ankle clonus. X-RAY REPORT: X-rays ordered, obtained and reviewed at [facility]. 2 views of the t spine reveal mild compression fracture T11. Osteoporosis noted. Degenerative disc disease noted. Difficult to fully evaluate due to poor bone density MRI REVIEWED: MRI of the spine reviewed in the office with the patient reveals [ ] ASSESSMENT & PLAN: T11 mild compression fracture from fall 02/27. Pain is severe still despite conservative treatment over the past few months. Recommend CT lumbar spine to further evaluate T11 and rule out other fractures/structural lesions. Should be fine with pacemaker. She is having some radicular complaints but mid back is worse than the low back. She will continue calcium and vitamin D. F/u to be arranged once CT is complete [facility] speech recognition psychiatric attendant software was used to create portions of this document. An attempt at proofreading has been made to minimize errors. Please call for corrections. Lilia Grewal PA-C [address], [place], [address], [place] [facility] 06/08/2024 07:37:39 07/18/2024 text/html I am seeing the patient today under the supervision of Dr. Davis who was available but who did not see the patient.HPI: Patient presents for CT scanning review regarding ongoing mid back pain since a fall 02/28/24. Patient has a known T11 mild compression fracture. She reports she is still having the same pain without improvement. She was unable to have MRI due to a pacemaker/defibrilla tor. She is having severe pain that awakens her at night. She also has radiating leg pain especially the left side. Worse with prologued sitting and standing. Rates pain moderate. She is wearing the TLSO brace and taking Tramadol without relief. Denies bowel or bladder dysfunction.Past family, medical, social history and review of systems has been reviewed, updated and signed by me and is located in the patient? ? ?s chart.PHYSICAL EXAM: The patient is well appearing, alert and oriented x3 and in no acute distress. Gait is normal. Inspection of the spine reveals no step off, deformity or overlying skin changes. Range of motion of the lumbar spine is 70% of normal. Hip and knee range of motion full without discomfort. The spine is tender over the T10/T11 level. Nontender over the greater trochanters. Straight leg raise is negative. Strength and sensation intact. Re? e xes normal. No ankle clonus.X-RAY REPORT: X-rays previously ordered, obtained and reviewed at [facility]. 2 views of the t spine reveal mild compression fracture T11. Osteoporosis noted. Degenerative disc disease noted. Difficult to fully evaluate due to poor bone densityCT thoracic spine reviewed independently reveals similar appearing compression fracture deformity of T11 involving the superior endplate. No evidence of bony lesions or other fractures.ASSESSMENT & PLAN: T11 mild compression fracture sustained in fall 02/28/24. Pain is severe still despite conservative treatment over the past few months. Recommend evaluation at [facility] pain management given ongoing symptoms. We did discuss the window for kyphoplasty procedure which is something we do not perform here at our practice. She should be evaluated for injections and/or other ways to manage her pain.[employer] speech recognition psychiatric attendant software was used to create portions of this document. An attempt at proofreading has been made to minimize errors. Please call for corrections. Lilia Grewal PA-C [address], [place], [address], [facility] 07/18/2024 10:23:20 09/05/2024 text/html I am seeing the patient today by telemedicine appointment under the supervision of Dr. Davis who was available but who did not see the patient. HPI: The patient recently had the following test performed: MRI thoracic and lumbar spine_. Ordered through [facility] at [facility]. Patient reports no change in symptoms. She reports low back and radiating leg pain just past the knee L4 distribution. Has not had physical therapy. See previous note for full history. Past family, medical, social history and review of systems has been reviewed, updated and signed by me and is located in the patient's chart. MRI REVIEWED: MRI of the thoracic and lumbar spine_ independently reviewed reveals chronic compression deformity T11 mild. No acute fractures. There is a mild central disc bulge at L3-4 without high-grade stenosis but some mild to moderate canal narrowing. No evidence of nerve root impingement at any level. No bony lesions. ASSESSMENT & PLAN: _Chronic mild T11 compression deformity and mild to moderate lumbar spondylosis L3-4. Recommend she follow-up with pain management. They discussed trying an epidural. I reassured her this would be my recommendation based on her symptoms ongoing despite conservative care. We did discuss physical therapy although she is looking for immediate relief and I do not believe she would tolerate PT given her pain profile. This may be an option if the pain improves with the epidural. Follow-up arranged in 6 to 8 weeks. 10 minutes spent on the phone today. [employer] speech recognition psychiatric attendant software was used to create portions of this document. An attempt at proofreading has been made to minimize errors. Please call for corrections Lilia Grewal PA-C [address], [place], [address], [facility] 09/05/2024 14:15:58 OBGyn Episode No OBEpisode recorded.
--- OUTSIDE RECORDS SUMMARY | 2024-10-07 16:24 | XMS_ITS | Clinical Summary ---
Author Organization [facility] Address [address] [place] [address] Care Team Providers Care Filer Metal Patterns Name Role Phone Unavailable Primary Care Provider Unavailabl e Social History Tobacco Use Types Packs/Day Years Used Date Smoking Tobacco: Never Assessed Comments Unknown Sex and Gender Information Value Date Recorded Sex Assigned at Not on file Legal Sex Female 11:15 PM EST Gender Identity Not on file Sexual Orientation Not on file Plan of Treatment Health Maintenance Due Date Last Done Comments Breast Cancer Screening 1970 DTaP,Tdap,and Td Vaccines (1 - Tdap) 1989 Hepatitis B Vaccines (1 of 3 - 19+ 3-dose series) 1989 Cervical Cancer Screening: P ap Smear 1991 Pneumococcal Vaccine: 50+ Ye ars (1 of 1 - PCV) 2020 Zoster Vaccines (1 of 2) 2020 COVID-19 Vaccine ( - 2023-2 5 season) 2024 Influenza Vaccine (#1) 2024 HIB Vaccines Aged Out No longer eligi ble based on patient's age to complete this topic HPV Vaccines Aged Out No longer eligi ble based on patient's age to complete this topic Hepatitis A Vaccines Aged Out No long er eligible based on patient's age to complete this topic IPV Vaccines Aged Out No longer eligi ble based on patient's age to complete this topic MMR Vaccines Aged Out No longer eligi ble based on patient's age to complete this topic Meningococcal ACWY Vaccine Aged Out N o longer eligible based on patient's age to complete this topic Meningococcal B Vacine Aged Out No lo nger eligible based on patient's age to complete this topic Pneumococcal Vaccine: Pediat rics (0 to 5 Years) and At-Risk Patients (6 to 64 Years) Aged Out No longer eligible b ased on patient's age to complete this topic RSV Immunization Patients Un zoila 20 months Aged Out No longer eligible b ased on patient's age to complete this topic Varicella Vaccines Aged Out No longer eligible based on patient's age to complete this topic
== END 2024-10-07 15:02 | disposition home or self-care (01) ==
PROVIDERS: PCP Internal Medicine; Visit Provider Internal Medicine
DX: R42 Dizziness and giddiness (principal); S09.90XS Unspecified injury of head, sequela; V89.2XXA Person injured in unspecified motor-vehicle accident, traffic, initial encounter; M54.2 Cervicalgia; M25.512 Pain in left shoulder

== ENCOUNTER 2024-11-12 09:30 | Outpatient (AMB) | payer OTHER, SELFPAY ==
[2024-11-12 09:34] VITALS: BP 106/64; PULSE 82; O2SAT 96; BMI 21.7
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
--- OUTSIDE RECORDS SUMMARY | 2024-11-12 10:41 | XMS_ITS | Clinical Summary ---
Author Organization [facility] Address [address] [place] [address] Care Team Providers Care Specialty Trimmer Name Role Phone Unavailable Primary Care Provider [...] - 2023-2 5 season) 2024 Influenza Vaccine (Season Ended) 2025 HIB Vaccines Aged Out No longer eligi [...] age to complete this topic Meningococcal B Vaccine Aged Out No l onger eligible based on patient's age to complete [...]
== END 2024-11-12 09:57 | disposition home or self-care (01) ==
LOC: HO.HMCH 09:30
PROVIDERS: PCP Internal Medicine; Visit Provider Internal Medicine
DX: M54.2 Cervicalgia (principal); M25.512 Pain in left shoulder; Z04.3 Encounter for examination and observation following other accident; R42 Dizziness and giddiness; V89.2XXA Person injured in unspecified motor-vehicle accident, traffic, initial encounter; S09.90XS Unspecified injury of head, sequela

== ENCOUNTER → 2024-11-12 09:30 | Outpatient (BNVA) | payer OTHER, SELFPAY | PROVIDERS: PCP Internal Medicine; Visit Provider Internal Medicine | DX: M54.2 Cervicalgia (principal); M25.512 Pain in left shoulder; R42 Dizziness and giddiness; S09.90XS Unspecified injury of head, sequela; V89.2XXS Person injured in unspecified motor-vehicle accident, traffic, sequela; M79.672 Pain in left foot | CPT/HCPCS: 96127; 99212 ==

== ENCOUNTER 2024-12-05 16:25 | Outpatient (REF) | payer OTHER, SELFPAY ==
--- NOTE | ~2024-12-05 | CT_ITS ---
CLINICAL HISTORY: Z87.891 - Personal history of nicotine dependence CT lung cancer screening (LDCT) Comparison: CT/UT/SR - CT LUNG SCREENING - 12/08/23 11:10 EDT Technique: Axial CT images of the chest using low-dose technique. Referring provider counseled the patient on shared decision-making for LDCT screening. Additional counseling was provided on smoking cessation. Effective radiation dose total: DLP 27.9 mGycm, CTDIvol 0.8 mGy. Findings: Previously described nodules are no longer evident. No new nodules are noted. A few tiny nodules are noted which were present on the prior exam and are unchanged. There are minimal coronary artery calcifications. Limited upper abdomen: Unremarkable A cardiac device is present with leads in the right atrium and right ventricle. Impression: LungRADS 2 - Benign Appearance: Continue annual screening with low dose Chest CT in 12 months. ##L2# Category 1: Normal; continue annual screening Category 2: Benign appearance or behavior, continue annual screening Category 3: Probably benign, [address] recommended Category 4A: Suspicious, [address] recommended; may consider PET/CT Category 4B: Suspicious, Additional diagnostics and/or tissue sampling recommended Category 4X: Suspicious, Additional diagnostics and/or tissue sampling recommended Category 0: Recalls (incomplete screen due to Incomplete coverage, Noise, Respiratory motion, Expiration, Obscured by acute abnormality) This document has been electronically signed by: Bishnu Boyer MD on 12/06/2024 12:44:38
--- OUTSIDE RECORDS SUMMARY | 2024-12-05 16:27 | XMS_ITS | Data Portability ---
Author Organization [place] - [facility], [facility] Address [address] [place] [address] Care Team Providers Care Furnace Unloader Name Role Phone NIKKI COSTA Primary Care Provider Assessment No assessment recorded. Plan of Treatment Reminders Order Date Submit Date Provider Last Modified By Organization Details Last Modified Time Details Appointments None recorded. Lab None recorded. Referral acupuncturi st referral - acupuncture referral for thoracic back pain 2024 025 [email or web address] Not available 5 12:59:19 Procedures None recorded. Surgeries None recorded. Imaging XR, thoracic spine, 2 view - 304 recheck t-spine 2v. 2023 024 [email or web address] [facility], [address], [address], [place], [address], 4 13:58:55 CT, thoracic spine, w/o contrast - ct t-spine evaluate history of compression fracture 2023 024 GIORGIO [facility], [address] [facility], [address], [place], [address], 4 04:00:58 XR, thoracic spine, 2 view - 304, 2 views of T-spine 2023 024 [email or web address] [facility], [address], [address], [place], [address], 4 11:47:26 MRI, thoracic spine, w/o contrast - Evaluate compression fracture, resistent pain despite conservativ e treatment. 2023 024 [email or web address] [facility] ([facility]), [address], [place], [address], 11:47:26 Medication Orders None recorded. Patient TargetsNo targets recorded. Patient InstructionsNo instructions recorded. 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 Referral for T horacic back pain acupuncture referral for thoracic back pain Referring Physician: Lilia Grewal, Orthopedic Surgery, Encounter Date: 12/02/2024 Results Created Date Observation Date Name Description Value Unit Range Abnormal Flag Note LastModifiedBy Organization Detail LastModifiedTime 04/23/20 24 04/23/2024 XR, thora cic spine , 2 view http:/ [email or web address] ?Encry pted=s hAaTro YD8dLq bEUv6g %2BXZw aYqtaq 0bqfl% 2Fg9IQ a4ajBk vP9nXo QUaueC m3YtLR FvZlgJ JJ8mAn HZtai3 5g7922 AC0Kqa nWFVae mKiQtr MwF INTERFACE [facility] [address], [place], [address], 04/23/2024 12:39:40 04/23/20 24 04/23/2024 XR, thora cic spine , 2 view http:/ [email or web address] ?Encry pted=s hAaTro YD8dLq bEUv6g %2BXZw aYqtaq 0bqfl% 2Fg9IQ a4ajBk vP9nXo QUaueC m3YtLR FvZl JJ8mAn HZtai3 6b9636 AC0Kqa nWFVae mKiQtr MwF INTERFACE [facility] [address], [place], [address], 04/23/2024 12:39:42 06/06/20 24 06/06/2024 XR, thora cic spine , 2 view http:/ [email or web address] ?Encry pted=s hAaTro YD8dLq bEUv6g %2BXZw aYqtaq 0bqfl% 2Fg9IQ a4ajBk vP9nXo QUaueC m3YtLR FvZlgJ JJ8mAn HZtai3 1a4194 AC0Kqa HqFVau gKiQtr MwF INTERFACE [facility] [address], [place], [address], 06/06/2024 12:24:38 06/06/20 24 06/06/2024 XR, thora cic spine , 2 view http:/ [email or web address] ?Encry pted=s hAaTro YD8dLq bEUv6g %2BXZw aYqtaq 0bqfl% 2Fg9IQ a4ajBk vP9nXo QUaueC m3YtLR FvZlgJ JJ8mAn HZtai3 2s6205 AC0Kqa HqFVau gKiQtr MwF INTERFACE [facility] [address], [place], [address], 06/06/2024 12:24:40 06/21/20 24 06/20/2024 CT, thora cic spine , w/o contr ast No observ ation record ed. [email or web address] [address] [facility] [address], [place], [address], 07/01/2024 14:34:05 Result Notes None recorded. Procedures Surgical History None recorded. Imaging Results Imaging Date Name Status LastModified by Organiz [facility] Details LastModified Time 04/23/2024 XR, thoracic spine, 2 view completed INTERFACE [facility] [address], [place], [address], 04/23/2024 12:39:40 04/23/2024 XR, thoracic spine, 2 view completed INTERFACE [facility] [address], [place], [address], 04/23/2024 12:39:42 06/06/2024 XR, thoracic spine, 2 view completed [facility] [address], [place], [address], 06/06/2024 12:24:38 06/06/2024 XR, thoracic spine, 2 view completed [facility] [address], [place], [address], 06/06/2024 12:24:40 06/20/2024 CT, thoracic spine, w/o contrast completed [email or web address] [facility] [address], [place], [address], 07/01/2024 14:34:05 Procedure Notes None recorded. Medical [...] Available nicotine (polacrilex ) 4 mg gum CHEW 1 PIECE OF GUM BUCCALLY EVERY 2 HOURS active Not Available [...] Xarelto 20 mg tablet TAKE 1 TABLET ORALLY DAILY FOR 90 DAYS MUST ADMINISTE R WITH EVENING MEAL active Not Available Not Available No t Available Vitals Date Recorded Body height Body mass index (BMI) Body weight Provider Name and Address Organization Details Last Updated DateTime 04/23/2024 175.26 cm 20.4 kg/m2 89754.75 g Sam Woodson [facility] 04/23/2024 12:28:59 Date Recorded Body height Body mass index (BMI) Body weight Provider Name and Address Organization Details Last Updated DateTime 06/06/2024 175.26 cm 20.4 kg/m2 25861.75 g Kristine [facility] 06/06/2024 12:07:08 Date Recorded Body height Body mass index (BMI) Body weight Provider Name and Address Organization Details Last Updated DateTime 07/18/2024 175.26 cm 20.4 kg/m2 67033.75 g SARAH BETH HILLS [facility] 07/18/2024 09:35:39 Date Recorded Body height Body mass index (BMI) Body weight Provider Name and Address Organization Details Last Updated DateTime 12/02/2024 175.26 cm 20.4 kg/m2 08006.75 g Kristine morales [facility] 12/02/2024 10:48:58 Social History None recorded. Functional Status None recorded. Mental Status None recorded. Family History Nothing Reported. Medical History No medical history recorded. Gynecological HistoryNo gynecological history recorded. Obstetrics History GPAL:G 0 P 0 0 0 0 Past Encounters Encounter ID Performer Location Encounter Start Date Encounter Closed Date Diagnosis/Indication Diagnosis SNOMED-CT Code Diagnosis ICD10 Code Diagnosis Note [id number] Lilia Grewal PA-C [facility] [address] [place] [address] 03/19/2024 13:25:52 04/24/2024 09:02:10 Pain in thoracic spine 551232139 M54.6 Sprain of left ankle 199 0257634 9563464 S93.402A [id number] Lilia Grewal PA-C [facility] [address] [place] [address] 04/23/2024 12:19:35 05/21/2024 16:13:59 Pain in thoracic spine 887666562 M54.6 [id number] Lilia Grewal PA-C [facility] [address] [place] [address] 06/06/2024 11:11:41 06/20/2024 12:16:58 Compression fracture of thoracic spine 081156224 S22.000D [id number] Lilia Grewal PA-C [facility] [address] [place] [address] 07/18/2024 09:13:32 08/08/2024 11:45:54 Compression fracture of thoracic spine 960148428 S22.080S [id number] Lilia Grewal PA-C [facility] [address] [place] [address] 09/05/2024 10:31:45 09/24/2024 17:28:17 Lumbar radiculopathy 696227330 M54.16 [id number] Lilia Grewal PA-C [facility] [address] [place] [address] 12/02/2024 10:41:20 12/02/2024 12:28:25 Thoracic back pain 262962679 M54.6 Health Concerns Section Related Observation LastModified by Organization Matt ls LastModified Time None Recorded Concern Status LastModified by Organization Details LastModified Time None Recorded Advance Directives Directive None Recorded Payers Encounter Date Sequence Insurance Name Policy Number Policy Silverman Covered Member ID Silverman Member ID Guarantor Name 04/23/2024 1 [employer] (MED[employer]ID HMO) DAVID Traoreic Jackie Malic 06/06/2024 1 [employer] ([employer] HMO) DAVID Traoreic Jackie Malic 07/18/2024 1 [employer] (MEDICAID HMO) DAVID Mejia Malic Jackie Malic 09/05/2024 1 [employer] (MEDICAID HMO) DAVID Traoreic Jackie Malic 12/02/2024 1 [employer] (MEDICAID HMO) DAVID Traoreic Jackie Malic Notes Date Note Type Note Provider Name and Address Organization Details Recorded Time 04/23/2024 text/html I am seeing the patient [...] REPORT: X-rays ordered, obtained and reviewed at [facility]. 2 views of the t spine [...] and vitamin D. F/u to be arranged [facility] speech recognition manufacturing engineering technologist software was used to create portions of this document. An attempt at proofreading has been made to minimize errors. Please call for corrections. Lilia Grewal PA-C [address] [facility] [address], [place], [address], [facility] [place] 04/23/2024 13:34:28 06/06/2024 text/html I am seeing [...] REPORT: X-rays ordered, obtained and reviewed at [facility]. 2 views of the t spine [...] to be arranged once CT is complete [facility] speech recognition manufacturing engineering technologist software was used to create portions of this document. An attempt at proofreading has been made to minimize errors. Please call for corrections. Lilia Grewal PA-C [address] [facility] [address], [place], [address], [facility] 06/08/2024 07:37:39 07/18/2024 text/html I am seeing [...] X-rays previously ordered, obtained and reviewed at [facility]. 2 views of the t spine [...] the past few months. Recommend evaluation at [facility] pain management given ongoing symptoms. We did discuss the window for kyphoplasty procedure which is something we do not perform here at our practice. She should be evaluated for injections and/or other ways to manage her pain.[employer] [facility] speech recognition manufacturing engineering technologist software was used to create portions of this document. An attempt at proofreading has been made to minimize errors. Please call for corrections. Lilia Grewal PA-C [address] [place] [address] [address] [facility], [place], [address], [facility] 07/18/2024 10:23:20 09/05/2024 text/html I am seeing the patient today by telemedicine appointment under the supervision of Dr. Davis who was available but who did not see the patient. HPI: The patient recently had the following test performed: MRI thoracic and lumbar spine_. Ordered through [facility] at [facility]. Patient reports no change in symptoms. [...] 10 minutes spent on the phone today. [employer] speech recognition manufacturing engineering technologist software was used to create portions of this document. An attempt at proofreading has been made to minimize errors. Please call for corrections Lilia Grewal PA-C [address] [facility] [address], [place], [address], [facility] [place] 09/05/2024 14:15:58 12/02/2024 text/html I am seeing the patient today under the supervision of Dr. Davis who was available but who did not see the patient.HPI: Patient presents for recheck regarding back pain. Symptoms are the same. No changes.. States she declined injections at pain management. Follow-uptoday regarding ongoing mid back pain since a fall 02/28/24. Patient has a known chronic T11 mild compression fracture. She reports she is still having the same pain without improvement. She has a pacemaker/defibrilla tor. She is having severe pain that awakens her at night. She also has radiating leg pain especially the left side. Worse with prologued sitting and standing. Rates pain moderate. She has tried a TLSO brace and Tramadol. PT was minimally effective. Denies bowel or bladder dysfunction.Past family, medical, [...] X-rays previously ordered, obtained and reviewed at [facility]. 2 views of the t spine reveal mild compression fracture T11. Osteoporosis noted. Degenerative disc disease noted. Difficult to fully evaluate due to poor bone densityCT and MRI thoracic/lumbar spine previously reviewed by myself independently reveals a chronic compression fracture deformity of T11 involving the superior endplate. No evidence of bony lesions or other fractures. No high grade stenosis.ASSESSMENT & PLAN: Chronic mid and low back pain with history of chronic healed T11 mild compression fracture sustained in fall 02/28/24. Again discussed other ways to manage her pain such as acupuncture. Order provided today. Discussed the wellness point in [place]. Patient will continue to request pain medication through her PCP. [facility] 3 [facility] speech recognition manufacturing engineering technologist software was used to create portions of this document. An attempt at proofreading has been made to minimize errors. Please call for corrections. Lilia Grewal PA-C [address] [facility] [address], [place], [address], [facility] 12/02/2024 12:28:23 OBGyn Episode No OBEpisode recorded.
== END 2024-12-05 16:26 | disposition home or self-care (01) ==
LOC: HO.CT 16:25
PROVIDERS: PCP Internal Medicine; Visit Provider Physician Assistant Medical
DX: Z12.2 Encounter for screening for malignant neoplasm of respiratory organs (principal); Z87.891 Personal history of nicotine dependence
CPT/HCPCS: 71271

== ENCOUNTER → 2024-12-05 16:26 | Outpatient (BNV) | payer OTHER, SELFPAY | PROVIDERS: PCP Internal Medicine; Visit Provider Radiology Diagnostic Radiology | DX: Z87.891 Personal history of nicotine dependence (principal) | CPT/HCPCS: 71271 ==

== ENCOUNTER 2024-12-17 09:47 | Outpatient (AMB) | payer OTHER, SELFPAY ==
[2024-12-17 09:49] VITALS: BP 108/62; PULSE 78; O2SAT 95; BMI 21.1
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
--- OUTSIDE RECORDS SUMMARY | 2024-12-17 10:48 | XMS_ITS | Clinical Summary ---
Author Organization [facility] Address [address] [place] [address] Care Team Providers Care Machine Trimmer Name Role Phone Unavailable Primary Care [...]
--- OUTSIDE RECORDS SUMMARY | 2024-12-17 10:49 | XMS_ITS | Data Portability ---
Author Organization [place] - [facility], [facility] Address [address] [place] [address] Care Team Providers Care Spray Mixer Name Role Phone NIKKI COSTA Primary Care Provider [phone] Assessment No assessment recorded. Plan of Treatment [...] 304 recheck t-spine 2v. 2023 024 [email or web address] [facility], [address], [address], [place], [address], 4 13:58:55 CT, thoracic spine, w/o contrast - ct t-spine evaluate history of compression fracture 2023 024 [email or web address] [facility], [address], [address], [place], [address], 4 04:00:58 XR, thoracic spine, 2 view - 304, 2 views of T-spine 2023 024 [email or web address] [facility], [address], [address], [place], [address], 4 11:47:26 MRI, thoracic spine, w/o contrast - Evaluate compression fracture, resistent pain despite conservativ e treatment. 2023 024 [email or web address] [facility] [address], [place], [address], 11:47:26 Medication Orders None recorded. Patient TargetsNo targets recorded. Patient InstructionsNo instructions recorded. Reason for Referral Manager Managed Care Referral for T horacic back pain acupuncture [...] a4ajBk vP9nXo QUaueC m3YtLR FvZlgJ JJ8mAn HZtai3 [id number] AC0Kqa nWFVae mKiQtr MwF INTERFACE [facility] [address], [place], [address], 04/23/2024 12:39:40 04/23/20 24 04/23/2024 XR, thora cic spine , 2 view http:/ [email or web address] ?Encry pted=s hAaTro YD8dLq bEUv6g %2BXZw aYqtaq 0bqfl% 2Fg9IQ a4ajBk vP9nXo QUaueC m3YtLR FvZl JJ8mAn HZtai3 [id number] AC0Kqa nWFVae mKiQtr MwF INTERFACE [facility] [address], [place], [address], 04/23/2024 12:39:42 06/06/20 24 06/06/2024 XR, thora cic spine , 2 view http:/ [email or web address] ?Encry pted=s hAaTro YD8dLq bEUv6g %2BXZw aYqtaq 0bqfl% 2Fg9IQ a4ajBk vP9nXo QUaueC m3YtLR FvZlgJ JJ8mAn HZtai3 [id number] AC0Kqa HqFVau gKiQtr MwF INTERFACE [facility] [address], [place], [address], 06/06/2024 12:24:38 06/06/20 24 06/06/2024 XR, thora cic spine , 2 view http:/ [email or web address] ?Encry pted=s hAaTro YD8dLq bEUv6g %2BXZw aYqtaq 0bqfl% 2Fg9IQ a4ajBk vP9nXo QUaueC m3YtLR FvZlgJ JJ8mAn HZtai3 2h8841 AC0Kqa HqFVau gKiQtr MwF INTERFACE [facility] [address], [place], [address], 06/06/2024 12:24:40 06/21/20 24 06/20/2024 CT, thora cic spine , w/o contr ast No observ ation record ed. [email or web address] [address] [facility], [place], [address], 07/01/2024 14:34:05 Result Notes None recorded. Procedures Surgical History None recorded. Imaging Results Imaging Date Name Status LastModified by [facility] Details LastModified Time 04/23/2024 XR, thoracic spine, 2 view completed INTERFACE [facility] [address], [place], [address], 04/23/2024 12:39:40 04/23/2024 XR, thoracic spine, 2 view completed INTERFACE [facility] [address], [place], [address], 04/23/2024 12:39:42 06/06/2024 XR, thoracic spine, 2 view completed INTERFACE [facility] [address], [place], [address], 06/06/2024 12:24:38 06/06/2024 XR, thoracic spine, 2 view completed INTERFACE [facility] [address], [place], [address], 06/06/2024 12:24:40 06/20/2024 CT, thoracic spine, w/o contrast completed [email or web address] [facility] [address], [place], [address], 07/01/2024 14:34:05 Procedure Notes None recorded. Medical [...] Updated DateTime 04/23/2024 175.26 cm 20.4 kg/m2 48456.75 g Sam Woodson [facility] 04/23/2024 12:28:59 Date Recorded Body height Body mass index (BMI) Body weight Provider Name and Address Organization Details Last Updated DateTime 06/06/2024 175.26 cm 20.4 kg/m2 53193.75 g Kristine [facility] 06/06/2024 12:07:08 Date Recorded Body height Body mass index (BMI) Body weight Provider Name and Address Organization Details Last Updated DateTime 07/18/2024 175.26 cm 20.4 kg/m2 71181.75 g SARAH BETH HILLS [facility] 07/18/2024 09:35:39 Date Recorded Body height Body mass index (BMI) Body weight Provider Name and Address Organization Details Last Updated DateTime 12/02/2024 175.26 cm 20.4 kg/m2 09424.75 g Kristine morales [facility] 12/02/2024 10:48:58 Social History None recorded. Functional Status None recorded. Mental Status None recorded. Family History Nothing Reported. Medical History No medical history recorded. Gynecological HistoryNo gynecological history recorded. Obstetrics History GPAL:G 0 P 0 0 0 0 Past Encounters Encounter ID Performer Location Encounter Start Date Encounter Closed Date Diagnosis/Indication Diagnosis SNOMED-CT Code Diagnosis ICD10 Code Diagnosis Note [id number] Lilia Grewal PA-C [facility] [address] [place] [address] 03/19/2024 13:25:52 04/24/2024 09:02:10 Pain in thoracic spine 214954117 M54.6 Sprain of left ankle 182 5675215 3668021 S93.402A [id number] Lilia Grewal PA-C [facility] [address] [place] [address] 04/23/2024 12:19:35 05/21/2024 16:13:59 Pain in thoracic spine 415257653 M54.6 [id number] Lilia Grewal PA-C [facility] [address] [place] [address] 06/06/2024 11:11:41 06/20/2024 12:16:58 Compression fracture of thoracic spine 610800053 S22.000D [id number] Lilia Grewal PA-C [facility] [address] [place] [address] 07/18/2024 09:13:32 08/08/2024 11:45:54 Compression fracture of thoracic spine 405762344 S22.080S [id number] Lilia Grewal PA-C [facility] - [facility] [address] [place] [address] 09/05/2024 10:31:45 09/24/2024 17:28:17 Lumbar radiculopathy 049284620 M54.16 [id number] Lilia Grewal PA-C [facility] - [facility] [address] [place] [address] 12/02/2024 10:41:20 12/02/2024 12:28:25 Thoracic back pain 863311863 M54.6 Health Concerns Section Related Observation LastModified by Organization Matt ls LastModified Time None Recorded Concern Status LastModified by Organization Details LastModified Time None Recorded Advance Directives Directive None Recorded Payers Encounter Date Sequence Insurance Name Policy Number Policy Silverman Covered Member ID Silverman Member ID Guarantor Name 04/23/2024 1 [facility] PL[facility] (MEDICAID HMO) DAVID Traoreic Jackie Malic 06/06/2024 1 [facility] PL[facility] (MEDICAID HMO) DAVID Traoreic Jackie Malic 07/18/2024 1 [facility] (MEDICAID HMO) DAVID Mejia Malic Jackie Malic 09/05/2024 1 [facility] (MEDICAID HMO) DAVID Traoreic Jackie Malic 12/02/2024 1 [facility] PL[facility] (MEDICAID HMO) DAVID Traoreic Jackie Malic [...] REPORT: X-rays ordered, obtained and reviewed at [facility]. 2 views of the t spine reveal [...] and vitamin D. F/u to be arranged [facility] speech recognition district customs director software was used to create portions of this document. An attempt at proofreading has been made to minimize errors. Please call for corrections. Lilia Grewal PA-C [address], [place], [address], [facility] [place] 04/23/2024 13:34:28 06/06/2024 text/html I am seeing [...] REPORT: X-rays ordered, obtained and reviewed at [facility]. 2 views of the t spine reveal [...] to be arranged once CT is complete [facility] speech recognition district customs director software was used to create portions of this document. An attempt at proofreading has been made to minimize errors. Please call for corrections. Lilia Grewal PA-C [address], [place], [address], [facility] 06/08/2024 07:37:39 07/18/2024 text/html [...] X-rays previously ordered, obtained and reviewed at [facility]. 2 views of the t spine reveal [...] the past few months. Recommend evaluation at [facility] pain management given ongoing symptoms. We did discuss the window for kyphoplasty procedure which is something we do not perform here at our practice. She should be evaluated for injections and/or other ways to manage her pain.[facility] speech recognition district customs director software was used to create portions of this document. An attempt at proofreading has been made to minimize errors. Please call for corrections. Lilia Grewal PA-C [address] [place] [address] [address] [facility], [place], [address], [facility] 07/18/2024 10:23:20 09/05/2024 text/html I am seeing the patient today by telemedicine appointment under the supervision of Dr. Davis who was available but who did not see the patient. HPI: The patient recently had the following test performed: MRI thoracic and lumbar spine_. Ordered through [facility] at [facility]. Patient reports no change in symptoms. She [...] 10 minutes spent on the phone today. [employer] speech recognition district customs director software was used to create portions of this document. An attempt at proofreading has been made to minimize errors. Please call for corrections Lilia Grewal PA-C [address], [place], [address], [facility] 09/05/2024 14:15:58 12/02/2024 text/html I am seeing [...] X-rays previously ordered, obtained and reviewed at [facility]. 2 views of the t spine reveal [...] provided today. Discussed the wellness point in [place]. Patient will continue to request pain medication through her PCP. Follow-up in 3 months.[facility] speech recognition district customs director software was used to create portions of this document. An attempt at proofreading has been made to minimize errors. Please call for corrections. Lilia Grewal PA-C [address], [place], [address], [facility] 12/02/2024 12:28:23 OBGyn Episode No OBEpisode recorded.
== END 2024-12-17 10:34 | disposition home or self-care (01) ==
LOC: HO.HMCH 09:48
PROVIDERS: PCP Internal Medicine; Visit Provider Internal Medicine
DX: M54.2 Cervicalgia (principal); M25.512 Pain in left shoulder; R42 Dizziness and giddiness; S09.90XS Unspecified injury of head, sequela; V89.2XXA Person injured in unspecified motor-vehicle accident, traffic, initial encounter

== ENCOUNTER → 2024-12-17 09:47 | Outpatient (BNVA) | payer OTHER, SELFPAY | PROVIDERS: PCP Internal Medicine; Visit Provider Internal Medicine | DX: M54.2 Cervicalgia (principal); M25.512 Pain in left shoulder; R42 Dizziness and giddiness; S09.90XD Unspecified injury of head, subsequent encounter; V89.2XXD Person injured in unspecified motor-vehicle accident, traffic, subsequent encounter; Z91.81 History of falling; Z87.81 Personal history of (healed) traumatic fracture | CPT/HCPCS: 99212 ==